=== PATIENT | male | born 1990 | race African-American/Black ===

== ENCOUNTER 2017-01-22 11:07 | Inpatient (IN) | payer OTHER ==
[~2017-01-22] VITALS: Ht 188 cm; Wt 116.1 kg
[2017-01-22] VITALS (7 sets, daily range): BP systolic 134–188; BP diastolic 78–96; PULSE 72–95; RESP 18–20; TEMP 98.5–99.3; O2SAT 97–99
[~2017-01-22 11:07] MED LIST: Z.0.NO CURRENT MEDS
[2017-01-22] MEDS ORDERED: SODIUM CHLOR 0.9% 1000 ML INJ 1,000 ML IV SCH (11:16)
[2017-01-22] MEDS ORDERED: ONDANSETRON HCL 4 MG/2 ML VIAL IVP ONE (11:30)
[2017-01-22] MEDS ORDERED: FAMOTIDINE 20 MG/2 ML VIAL IV PUSH ONE (11:30)
[2017-01-22] MEDS ORDERED: PANTOPRAZOLE SODIUM 40 MG VIAL IVP ONE (11:30)
--- NOTE | 2017-01-22 11:39 | PD ---
HPI Chief Complaint: GI Complaint Time Seen by Provider: 11:35 Travel History International Travel<30 days: No Contact w/Intl Traveler<30days: No Traveled to known affect area: No History of Present Illness HPI 26-year-old male that presents to the ED for evaluation of ingestion of drugs yesterday. Per patient he ingested a couple of small bags of cocaine that he stopped in a bigger bag secondary to police involvement. Per patient he was doing this to prevent going to [facility] and not to kill himself. He denies any suicidal or homicidal ideation. Per patient she's been doing okay except that today his been taking some laxatives to get rid of the back and his been throwing up some blood as well as having diarrhea. Per patient he comes here by ambulance for evaluation of this. He denies ever drinking like this before. No chest pain or shortness of breath. No allergies to medication. No fevers chills or sweats. He also complains of some right wrist pain. Patient denies doing drugs himself. He states that this happened yesterday night. Pain per patient is 6 out of 10. [facility] Social History Alcohol Use: No Tobacco Use: No Substance Use: No Allergies-Medications (Allergen,Severity, Reaction): Coded Allergies: No Known Allergies (Verified Allergy, Mild, 01/19/07) Reported Meds & Prescriptions Reported Meds & Active Scripts Active Reported No Current Meds (Miscellaneous Medication) [facility] Review of Systems Except as stated in HPI: all other systems reviewed are Neg Physical Exam Narrative GENERAL: SKIN: Warm and dry. HEAD: Atraumatic. Normocephalic. EYES: Pupils equal and round. No scleral icterus. No injection or drainage. ENT: No nasal bleeding or discharge. Mucous membranes pink and moist. Tongue is midline. No uvula deviation. NECK: Trachea midline. No JVD. CARDIOVASCULAR: Regular rate and rhythm. No murmurs, S3, S4. RESPIRATORY: No accessory muscle use. Clear to auscultation. Breath sounds equal bilaterally. GASTROINTESTINAL: Abdomen soft, non-tender, nondistended. Hepatic and splenic margins not palpable. MUSCULOSKELETAL: Extremities without clubbing, cyanosis, or edema. No obvious deformities. Full range of motion of the upper and lower extremities bilaterally. 2+ pulses bilaterally. NEUROLOGICAL: Awake and alert. No obvious cranial nerve deficits. Motor grossly within normal limits. Five out of 5 muscle strength in the arms and legs. Normal speech. PSYCHIATRIC: Appropriate mood and affect; insight and judgment normal. Data Data Last Documented VS Vital Signs Date Time Temp Pulse Resp B/P (MAP) Pulse Ox O2 Delivery O2 Flow Rate FiO2 01/22/17 14:52 72 18 178/92 (120) 98 Room Air 01/22/17 13:08 98.5 Orders Orders Electrocardiogram (01/22/17 11:12) Complete Blood Count With Diff (01/22/17 11:12) Comprehensive Metabolic Panel (01/22/17 11:12) Urinalysis - C+S If Indicated (01/22/17 11:12) Magnesium (Mg) (01/22/17 11:12) Chest, Single Ap (01/22/17 11:12) Iv Access Insert/Monitor (01/22/17 11:12) Ecg Monitoring (01/22/17 11:12) Oximetry (01/22/17 11:12) Drug Screen, Random Urine (01/22/17 11:12) Alcohol (Ethanol) (01/22/17 11:12) Salicylates (Aspirin) (01/22/17 11:12) Tylenol (Acetaminophen) (01/22/17 11:12) Abdomen, Flat & Upright (01/22/17 ) Ondansetron Inj (Zofran Inj) (01/22/17 11:30) Pantoprazole Inj (Protonix Inj) (01/22/17 11:30) Sodium Chlor 0.9% 1000 Ml Inj (Ns 1000 M (01/22/17 11:16) Famotidine Inj (Pepcid Inj) (01/22/17 11:30) Ct Abd/Pel W/O Iv Contrast (01/22/17 ) Wrist, Limited (Ap&Lat) (01/22/17 ) Type And Screen (01/22/17 11:38) Peg (High)/E-Lyte Liq (Colyte Liq) (01/22/17 12:00) Call Poison Control (01/22/17 12:56) Elbow, Complete (4 Vws) (01/22/17 ) Splint Or Brace Apply/Monitor (01/22/17 13:51) Fiberglass Splint Forearm Adul (01/22/17 ) Sling And Swathe (01/22/17 ) Admit Order (Ed Use Only) (01/22/17 15:31) Labs Laboratory Tests Test 01/22/17 12:09 01/22/17 12:41 White Blood Count 12.0 TH/MM3 Red Blood Count 4.53 MIL/MM3 Hemoglobin 14.2 GM/DL Hematocrit 41.6 % Mean Corpuscular Volume 92.0 FL Mean Corpuscular Hemoglobin 31.4 PG Mean Corpuscular Hemoglobin Concent 34.2 % Red Cell Distribution Width 13.3 % Platelet Count 237 TH/MM3 Mean Platelet Volume 8.5 FL Neutrophils (%) (Auto) 81.1 % Lymphocytes (%) (Auto) 8.7 % Monocytes (%) (Auto) 9.6 % Eosinophils (%) (Auto) 0.1 % Basophils (%) (Auto) 0.5 % Neutrophils # (Auto) 9.7 TH/MM3 Lymphocytes # (Auto) 1.0 TH/MM3 Monocytes # (Auto) 1.1 TH/MM3 Eosinophils # (Auto) 0.0 TH/MM3 Basophils # (Auto) 0.1 TH/MM3 CBC Comment DIFF FINAL Differential Comment Blood Urea Nitrogen 10 MG/DL Creatinine 1.30 MG/DL Random Glucose 116 MG/DL Total Protein 7.8 GM/DL Albumin 4.3 GM/DL Calcium Level 8.9 MG/DL Magnesium Level 2.1 MG/DL Alkaline Phosphatase 77 U/L Aspartate Amino Transf (AST/SGOT) 41 U/L Alanine Aminotransferase (ALT/SGPT) 39 U/L Total Bilirubin 0.6 MG/DL Sodium Level 138 MEQ/L Potassium Level 3.5 MEQ/L Chloride Level 108 MEQ/L Carbon Dioxide Level 25.0 MEQ/L Anion Gap 5 MEQ/L Estimat Glomerular Filtration Rate 80 ML/MIN Salicylates Level 2.0 MG/DL Acetaminophen Level LESS THAN 2.0 MCG/ML Ethyl Alcohol Level LESS THAN 3 MG/DL Urine Color YELLOW Urine Turbidity CLEAR Urine pH 6.5 Urine Specific Jackson 1.025 Urine Protein TRACE mg/dL Urine Glucose (UA) NEG mg/dL Urine Ketones 10 mg/dL Urine Occult Blood NEG Urine Nitrite NEG Urine Bilirubin NEG Urine Urobilinogen LESS THAN 2.0 MG/DL Urine Leukocyte Esterase TRACE Urine RBC LESS THAN 1 /hpf Urine WBC 1 /hpf Urine Mucus FEW /lpf Microscopic Urinalysis Comment CULT NOT INDICATED Urine Opiates Screen NEG Urine Barbiturates Screen NEG Urine Amphetamines Screen NEG Urine Benzodiazepines Screen NEG Urine Cocaine Screen POS Urine Cannabinoids Screen POS MDM Medical Decision Making Medical Screen Exam Complete: Yes Emergency Medical Condition: Yes Medical Record Reviewed: Yes Interpretation(s) CBC & BMP Diagram 01/22/17 12:09 Total Protein 7.8, Albumin 4.3, Calcium Level 8.9, Magnesium Level 2.1, Alkaline Phosphatase 77, Aspartate Amino Transf (AST/SGOT) 41 H, Alanine Aminotransferase (ALT/SGPT) 39, Total Bilirubin 0.6 Last Impressions Chest X-Ray 01/22/17 1112 Signed Impressions: Service Date/Time: Sunday, January 22, 2017 11:28 - CONCLUSION: Normal examination. Geno Wade MD Wrist X-Ray 01/22/17 0000 Signed Impressions: Service Date/Time: Sunday, January 22, 2017 11:47 - CONCLUSION: Posterior avulsion fracture involving the triquetrum with moderate adjacent soft tissue edema. Geno Wade MD Abdomen X-Ray 01/22/17 0000 Signed Impressions: Service Date/Time: Sunday, January 22, 2017 11:31 - CONCLUSION: No acute disease. Geno Wade MD tox positive for cocaine and marijuana UA negative EKG shows sinus rhythm with no sign of acute ischemia or arrhythmia. Differential Diagnosis Obstruction versus ingestion versus foreign body ingestion versus substance abuse Narrative Course 26-year-old male that presents to the ED for evaluation of foreign body ingestion. Patient was properly examined and was found to have signs and symptoms consistent appears to be drug ingestion foreign body. Per patient this was not a suicidal attempt and this was merrily to avoid going to [facility]. Patient has been throwing up including blood. Labs and imaging showed positive for fracture of the proximal distal radial head as well as trapezium avulsion fracture. Imaging was unremarkable. Case discussed with poison control who recommended observation until patient's symptoms improve or he passes the backs. At this time patient has not been tachycardic any symptoms other than nausea and vomiting and some hypertension. This was discussed in my attending Dr. Mccauley were evaluated the patient herself and recommends admission for observation. She was given GoLYTELY at the recommendation of my attending as well as poison control. Patient put on splint. [facility] was paged. Dr Garner agrees to obs admission. Diagnosis Primary Impression: Purposeful non-suicidal drug ingestion Qualified Codes: T50.902A - Poisoning by unspecified drugs, medicaments and biological substances, intentional self-harm, initial encounter Additional Impressions: Foreign body ingestion Qualified Codes: T18.9XXA - Foreign body of alimentary tract, part unspecified , initial encounter Radial head fracture, closed Qualified Codes: S52.124A - Nondisplaced fracture of head of right radius, initial encounter for closed fracture Fracture of triquetrum of right wrist Qualified Codes: S62.114A - Nondisplaced fracture of triquetrum [cuneiform] bone, right wrist, initial encounter for closed fracture Admitting Information Admitting Physician Requests: Fransisco Roberts Jan 22, 2017 11:39
[2017-01-22] MEDS ORDERED: PEG (High)/E-LYTE SOLN 4000 ML BTL PO ONE (12:00)
--- NOTE | 2017-01-22 12:02 | PD ---
Physical Exam Date Seen by Provider: Jan 22, 2017 Narrative This patient presents for evaluation of cocaine ingestion. He reportedly swallowed 2 packets of cocaine last night. He does not have any signs or symptoms suggestive of cocaine toxicity. Data Data Orders Orders Electrocardiogram (01/22/17 11:12) Complete Blood Count With Diff (01/22/17 11:12) Comprehensive Metabolic Panel (01/22/17 11:12) Urinalysis - C+S If Indicated (01/22/17 11:12) Magnesium (Mg) (01/22/17 11:12) Chest, Single Ap (01/22/17 11:12) Iv Access Insert/Monitor (01/22/17 11:12) Ecg Monitoring (01/22/17 11:12) Oximetry (01/22/17 11:12) Drug Screen, Random Urine (01/22/17 11:12) Alcohol (Ethanol) (01/22/17 11:12) Salicylates (Aspirin) (01/22/17 11:12) Tylenol (Acetaminophen) (01/22/17 11:12) Abdomen, Flat & Upright (01/22/17 ) Ondansetron Inj (Zofran Inj) (01/22/17 11:30) Pantoprazole Inj (Protonix Inj) (01/22/17 11:30) Sodium Chlor 0.9% 1000 Ml Inj (Ns 1000 M (01/22/17 11:16) Famotidine Inj (Pepcid Inj) (01/22/17 11:30) Ct Abd/Pel W/O Iv Contrast (01/22/17 ) Wrist, Limited (Ap&Lat) (01/22/17 ) Type And Screen (01/22/17 11:38) Peg (High)/E-Lyte Liq (Colyte Liq) (01/22/17 12:00) MDM Supervised Visit with DALIA: Yes Narrative Course I, Dr. Mccauley, have reviewed the advance practice practitioner's documentation and am in agreement, met with the patient face to face, made the diagnosis, and the medical decision making was done by me. *My assessment and Findings: CT is pending to evaluate for retained cocaine packets. The patient will be given GoLYTELY. Brenda Mccauley MD Jan 22, 2017 12:01
--- NOTE | 2017-01-22 12:09 | RADRPT ---
EXAM DATE/TIME: 01/22/2017 11:28 [facility] COMPARISON: No previous studies available for comparison. INDICATIONS : Shortness of breath, cough, and vomiting. MEDICAL HISTORY : None. SURGICAL HISTORY : None. ENCOUNTER: Initial ACUITY: 1 day PAIN SCORE: 0/10 LOCATION: Bilateral chest FINDINGS: A single view of the chest demonstrates the lungs to be symmetrically aerated without evidence of mas s, infiltrate or effusion. The cardiomediastinal contours are unremarkable. Osseous structures are intact. CONCLUSION: Normal examination. Geno Wade MD on January 22, 2017 at 12:07 Board Certified Radiologist. This report was verified electronically.
--- NOTE | 2017-01-22 12:10 | RADRPT ---
EXAM DATE/TIME: 01/22/2017 11:31 [facility] COMPARISON: No previous studies available for comparison. INDICATIONS : Vomiting from swallowing small bags of drugs. MEDICAL HISTORY : None. SURGICAL HISTORY : None. ENCOUNTER: Initial ACUITY: 1 day PAIN SCORE: 5/10 LOCATION: Bilateral abdomen. FINDINGS: Supine and upright views of the abdomen were performed. The abdominal bowel gas pattern is normal. No air fluid levels are seen. No abnormal masses, calcifications, or organomegaly is seen. The visu alized lower lungs are clear. No evidence of free intraperitoneal gas. The osseous structures are u nremarkable. CONCLUSION: No acute disease. Geno Wade MD on January 22, 2017 at 12:08 Board Certified Radiologist. This report was verified electronically.
--- NOTE | 2017-01-22 12:11 | RADRPT ---
EXAM DATE/TIME: 01/22/2017 11:47 [facility] COMPARISON: No previous studies available for comparison. INDICATIONS : Pain from fall. MEDICAL HISTORY : None. SURGICAL HISTORY : None. ENCOUNTER: Initial ACUITY: 1 day PAIN SCORE: 5/10 LOCATION: Right wrist. FINDINGS: 2 views of the right wrist demonstrate an avulsion fracture along the dorsal aspect of the carpus wit h moderate adjacent soft tissue edema consistent with an avulsion of the triquetrum. The remainder th e osseous structures are intact with normal alignment and mineralization. CONCLUSION: Posterior avulsion fracture involving the triquetrum with moderate adjacent soft tissue edema. Geno Wade MD on January 22, 2017 at 12:09 Board Certified Radiologist. This report was verified electronically.
--- NOTE | 2017-01-22 12:24 | RADRPT ---
EXAM DATE/TIME: 01/22/2017 11:32 [facility] COMPARISON: No previous studies available for comparison. INDICATIONS : Nausea and vomiting after ingesting plastic bag containing drugs. ORAL CONTRAST: No oral contrast ingested. RADIATION DOSE: 10.09 CTDIvol (mGy) MEDICAL HISTORY : None SURGICAL HISTORY : None. ENCOUNTER: Initial ACUITY: 1 day PAIN SCALE: 0/10 LOCATION: Bilateral abdomen TECHNIQUE: Volumetric scanning of the abdomen and pelvis was performed. Using automated exposure control and adjustment of the mA and/or kV according to patient size, radiation dose was kept as low as reasonably achievable to obtain optimal diagnostic quality images. DICOM format image data is av ailable electronically for review and comparison. FINDINGS: LOWER LUNGS: The visualized lower lungs are clear. LIVER: Homogeneous density without lesion. There is no dilation of the biliary tree. No calcifi ed gallstones. SPLEEN: Normal size without lesion. PANCREAS: Within normal limits. KIDNEYS: Normal in size and shape. There is no mass, stone, or hydronephrosis. ADRENAL GLANDS: Within normal limits. VASCULAR: There is no aortic aneurysm. BOWEL/MESENTERY: The stomach, small bowel, and colon demonstrate no acute abnormality. Fluid-fill ed but not distended jejunal loops. Appendix is visualized and unremarkable. There is no free intrape ritoneal air or fluid. ABDOMINAL WALL: Within normal limits. RETROPERITONEUM: There is no lymphadenopathy. BLADDER: No wall thickening or mass. REPRODUCTIVE: Within normal limits. INGUINAL: There is no lymphadenopathy or hernia. MUSCULOSKELETAL: Within normal limits for patient age. CONCLUSION: 1. Unremarkable CT examination without evidence for acute abnormality. Specifically, no evidence for bowel obstruction. Lang Fernandez MD on January 22, 2017 at 12:19 Board Certified Radiologist. This report was verified electronically.
[2017-01-22 12:40] LABS: AUTOMATED NEUTROPHIL # 9.7 TH/MM3 (1.8-7.7); BASOPHIL # 0.1 TH/MM3 (0-0.2); BASOPHIL % 0.5 % (0.0-2.0); EOSINOPHIL % 0.1 % (0.0-4.0); HEMATOCRIT 41.6 % (39.0-51.0); HEMO FLAGS DIFF FINAL; LYMPH % 8.7 % (9.0-44.0); MEAN CORPUSCULAR HEMOGLOBIN 31.4 PG (27.0-34.0); MEAN CORPUSCULAR HGB CONC 34.2 % (32.0-36.0); MONO % 9.6 % (0.0-8.0); NEUT % 81.1 % (16.0-70.0); PLATELET COUNT 237 TH/MM3 (150-450); RED BLOOD COUNT 4.53 MIL/MM3 (4.50-5.90); RED CELL DISTRIBUTION WIDTH 13.3 % (11.6-17.2)
[2017-01-22 12:55] LABS: ALT (GPT) 39 U/L (12-78); ANION GAP 5 MEQ/L (5-15); AST (GOT) 41 U/L (15-37); BLOOD UREA NITROGEN 10 MG/DL (7-18); CHLORIDE 108 MEQ/L (98-107); GLOMERULAR FILTRATION RATE 80 ML/MIN (>89); MAGNESIUM 2.1 MG/DL (1.5-2.5); POTASSIUM 3.5 MEQ/L (3.5-5.1); SODIUM (NA) 138 MEQ/L (136-145)
[2017-01-22 12:57] LABS: BLOOD, URINE NEG (NEG); COMMENT (UR) CULT NOT INDICATED; CULTURE IF INDICATED CULT NOT INDICATED; GLUCOSE,URINE NEG (NEG); KETONE, URINE 10 mg/dL (NEG); MUCUS URINE FEW /lpf (OCC); NITRITE,URINE NEG (NEG); PH, URINE 6.5 (5.0-8.5); URINE COLOR YELLOW (YELLW/STRAW)
[2017-01-22 12:57] LABS: ALKALINE PHOSPHATASE 77 U/L (45-117); TOTAL BILIRUBIN ADULT 0.6 MG/DL (0.2-1.0)
[2017-01-22 13:01] LABS: ACETAMINOPHEN LESS THAN 2.0 MCG/ML (10.0-30.0); ALCOHOL LESS THAN 3 MG/DL (0-5)
--- NOTE | 2017-01-22 13:33 | RADRPT ---
EXAM DATE/TIME: 01/22/2017 13:25 [facility] COMPARISON: No previous studies available for comparison. INDICATIONS : Pain from fall. MEDICAL HISTORY : None. SURGICAL HISTORY : None. ENCOUNTER: Initial ACUITY: 1 day PAIN SCORE: 3/10 LOCATION: Right elbow. FINDINGS: Multiple views of the right elbow demonstrate a compression fracture involving the distal aspect of t he radial head without evidence of articular step-off. There is a small joint effusion present. The r emainder the osseous structures are intact with normal alignment and mineralization. CONCLUSION: Nondisplaced radial head fracture. Geno Wade MD on January 22, 2017 at 13:31 Board Certified Radiologist. This report was verified electronically.
--- NOTE | 2017-01-22 16:00 | HHI.HP ---
[facility] No Primary Care Physician Admission Diagnosis ingestion of drug stuffers with cocaine, wrist and elbow fx Diagnoses: Chief Complaint: ingested cocaine Travel History International Travel<30 Days: No Contact w/Intl Traveler <30 Da: No Traveled to Known Affected Are: No History of Present Illness Written by Dianna Orozco, acting as scribe for Dr. Dhillon on 01/22/17 at 16: 05. 26-year-old male with no significant past medical history presents after ingesting baggies of crack cocaine. The patient reports last night he was around a bunch of police and he was worried him and his friend were going to get arrested, therefore he decided to ingest 4 individually wrapped baggies of crack cocaine that were also placed inside another plastic sandwich bag. The patient ran from the scene, fell on an outstretched hand, and was taken to [facility] for resisting arrest. He spent the night in [facility], released this morning, then presented to the ER today with right wrist pain and vomiting. The patient reports he has been vomiting multiple times today, with a few episodes of streaks of bright red blood in the emesis. He has also been taking laxatives to assist with passing the baggies. He denies any abdominal pain, chest pain, palpitations, or shortness of breath. He denies using drugs himself, only admits to marijuana use. The patient has no other medical complaints at this time. Review of Systems Except as stated in HPI: all other systems reviewed are Neg Past Family Social History Past Medical History Denies any medical problems Past Surgical History Denies any prior surgeries Reported Medications Denies taking any medications on a regular basis Allergies: Coded Allergies: No Known Allergies (Verified , 01/19/07) Active Ordered Medications Current Medications Medications (Trade) Dose Ordered Sig/Can Route Start Time Stop Time Status Last Admin Sodium Chloride 1,000 ml @ 75 mls/hr [id number] IV 01/22/17 16:14 01/22/17 16:28 (NS Flush) 2 ml UNSCH PRN IV FLUSH 01/22/17 16:15 (NS Flush) 2 ml BID IV FLUSH 01/22/17 21:00 (Tylenol) 650 mg Q4H PRN PO 01/22/17 16:15 (Zofran Inj) 4 mg Q6H PRN IVP 01/22/17 16:15 (Narcan Inj) 0.4 mg UNSCH PRN IV PUSH 01/22/17 16:15 (Anay-Colace) 1 tab BID PO 01/22/17 21:00 (Milk Of Magnesia Liq) 30 ml Q12H PRN PO 01/22/17 16:15 (Senokot) 17.2 mg Q12H PRN PO 01/22/17 16:15 (Dulcolax Supp) 10 mg DAILY PRN RECTAL 01/22/17 16:15 (Lactulose Liq) 30 ml DAILY PRN PO 01/22/17 16:15 Family History Mother with hypertension Social History Drinks alcohol every other day, mostly white vodka Denies tobacco use Smokes marijuana regularly Denies any other illicit drug use Has 3 children Not Physical Exam Vital Signs Vital Signs Date Time Temp Pulse Resp B/P (MAP) Pulse Ox O2 Delivery O2 Flow Rate FiO2 01/22/17 14:52 72 18 178/92 (120) 98 Room Air 01/22/17 13:08 98.5 93 18 134/78 (96) 99 Room Air 01/22/17 11:30 99 Room Air 01/22/17 11:30 18 Physical Exam GENERAL: Well-nourished, well-developed young AA male patient in [facility]. SKIN: Warm and dry. No rash. HEAD: Normocephalic. Atraumatic. EYES: Pupils equal and round. No scleral icterus. No injection or drainage. ENT: No nasal bleeding or discharge. Mucous membranes pink and moist. NECK: Supple. Trachea midline. CARDIOVASCULAR: Regular rate and rhythm. S1, S2 noted. No murmur appreciated. RESPIRATORY: No accessory muscle use. Clear to auscultation. Breath sounds equal bilaterally. GASTROINTESTINAL: Abdomen soft, non-tender, nondistended. Normoactive bowel sounds x4. MUSCULOSKELETAL: No obvious deformities. Extremities without clubbing, cyanosis , or edema. NEUROLOGICAL: Awake and alert. No obvious cranial nerve deficits. Motor grossly within normal limits. Normal speech. PSYCHIATRIC: Appropriate mood and affect; insight and judgment normal. Laboratory Laboratory Tests Test 01/22/17 12:09 01/22/17 12:41 White Blood Count 12.0 Red Blood Count 4.53 Hemoglobin 14.2 Hematocrit 41.6 Mean Corpuscular Volume 92.0 Mean Corpuscular Hemoglobin 31.4 Mean Corpuscular Hemoglobin Concent 34.2 Red Cell Distribution Width 13.3 Platelet Count 237 Mean Platelet Volume 8.5 Neutrophils (%) (Auto) 81.1 Lymphocytes (%) (Auto) 8.7 Monocytes (%) (Auto) 9.6 Eosinophils (%) (Auto) 0.1 Basophils (%) (Auto) 0.5 Neutrophils # (Auto) 9.7 Lymphocytes # (Auto) 1.0 Monocytes # (Auto) 1.1 Eosinophils # (Auto) 0.0 Basophils # (Auto) 0.1 CBC Comment DIFF FINAL Differential Comment Blood Urea Nitrogen 10 Creatinine 1.30 Random Glucose 116 Total Protein 7.8 Albumin 4.3 Calcium Level 8.9 Magnesium Level 2.1 Alkaline Phosphatase 77 Aspartate Amino Transf (AST/SGOT) 41 Alanine Aminotransferase (ALT/SGPT) 39 Total Bilirubin 0.6 Sodium Level 138 Potassium Level 3.5 Chloride Level 108 Carbon Dioxide Level 25.0 Anion Gap 5 Estimat Glomerular Filtration Rate 80 Salicylates Level 2.0 Acetaminophen Level LESS THAN 2.0 Ethyl Alcohol Level LESS THAN 3 Urine Color YELLOW Urine Turbidity CLEAR Urine pH 6.5 Urine Specific Lyons 1.025 Urine Protein TRACE Urine Glucose (UA) NEG Urine Ketones 10 Urine Occult Blood NEG Urine Nitrite NEG Urine Bilirubin NEG Urine Urobilinogen LESS THAN 2.0 Urine Leukocyte Esterase TRACE Urine RBC LESS THAN 1 Urine WBC 1 Urine Mucus FEW Microscopic Urinalysis Comment CULT NOT INDICATED Urine Opiates Screen NEG Urine Barbiturates Screen NEG Urine Amphetamines Screen NEG Urine Benzodiazepines Screen NEG Urine Cocaine Screen POS Urine Cannabinoids Screen POS Result Diagram: 01/22/17 1209 01/22/17 1209 Imaging Last Impressions Chest X-Ray 01/22/17 1112 Signed Impressions: Service Date/Time: Sunday, January 22, 2017 11:28 - CONCLUSION: Normal examination. Geno Wade MD Wrist X-Ray 01/22/17 0000 Signed Impressions: Service Date/Time: Sunday, January 22, 2017 11:47 - CONCLUSION: Posterior avulsion fracture involving the triquetrum with moderate adjacent soft tissue edema. Geno Wade MD Abdomen X-Ray 01/22/17 0000 Signed Impressions: Service Date/Time: Sunday, January 22, 2017 11:31 - CONCLUSION: No acute disease. MD Rigoberto Moore VTE Risk Assessment Rigoberto VTE Risk Assessment: No/Low Risk (score <= 1) Caprini Risk Assessment Model Point Value = 1 Point Value = 2 Point Value = 3 Point Value = 5 Age 41-60 Minor surgery BMI > 25 kg/m2 Swollen legs Varicose veins or History of unexplained or recurrent spontaneous Oral contraceptives or hormone replacement Sepsis (< 1 month) Serious lung disease, including pneumonia (< 1 month) Abnormal pulmonary function Acute myocardial infarction Congestive heart failure (< 1 month) History of inflammatory bowel disease Medical patient at bed rest Age 61-74 Arthroscopic surgery Major open surgery (> 45 min) Laparoscopic surgery (> 45 min) Malignancy Confined to bed (> 72 hours) Immobilizing plaster cast Central venous access Age >= 75 History of VTE Family history of VTE Factor V Leiden Prothrombin [id number] Lupus anticoagulant Anticardiolipin antibodies Elevated serum homocysteine Heparin-induced thrombocytopenia Other congenital or acquired thrombophilia Stroke (< 1 month) Elective arthroplasty Hip, pelvis, or leg fracture Acute spinal cord injury (< 1 month) Prophylaxis Regimen Total Risk Factor Score Risk Level Prophylaxis Regimen 0-1 Low Early ambulation 2 Moderate Order ONE of the following: *Sequential Compression Device (SCD) *Heparin 5000 units SQ BID 3-4 Higher Order ONE of the following medications: *Heparin 5000 units SQ TID *Enoxaparin/Lovenox 40 mg SQ daily (WT < 150 kg, CrCl > 30 mL/min) *Enoxaparin/Lovenox 30 mg SQ daily (WT < 150 kg, CrCl > 10-29 mL/min) *Enoxaparin/Lovenox 30 mg SQ BID (WT < 150 kg, CrCl > 30 mL/min) AND/OR *Sequential Compression Device (SCD) 5 or more Highest Order ONE of the following medications: *Heparin 5000 units SQ TID (Preferred with Epidurals) *Enoxaparin/Lovenox 40 mg SQ daily (WT < 150 kg, CrCl > 30 mL/min) *Enoxaparin/Lovenox 30 mg SQ daily (WT < 150 kg, CrCl > 10-29 mL/min) *Enoxaparin/Lovenox 30 mg SQ BID (WT < 150 kg, CrCl > 30 mL/min) AND *Sequential Compression Device (SCD) Assessment and Plan Problem List: (1) Purposeful non-suicidal drug ingestion ICD Code: T50.902A - Poisoning by unspecified drugs, medicaments and biological substances, intentional self-harm, initialencounter Status: Acute (2) Foreign body ingestion ICD Code: T18.9XXA - Foreign body of alimentary tract, part unspecified, initial encounter Status: Acute (3) Radial head fracture, closed ICD Code: S52.123A - Displaced fracture of head of unspecified radius, initial encounter for closed fracture Status: Acute Assessment and Plan 26-year-old male with no significant past medical history presents after ingesting baggies of crack cocaine. Cocaine Ingestion: intentional ingestion in an attempt to escape police arrest. Last night 01/21 patient swallowed 4 individually wrapped baggies of crack cocaine rocks/crystals, placed inside another plastic sandwich bag. Poison control contacted from the ED. Patient is at EXTREMELY HIGH RISK FOR CARDIAC ARRHYTHMIA, SUDDEN CARDIAC ARREST, AND . UDS positive for cocaine and cannabinoids. -CT abdomen images reviewed, no acute findings. -ER already started patient on Golytely bowel prep to hopefully expel the contents. -Examine all stools -Monitor on telemetry -Supportive treatment with IVF, antiemetics prn -Clear liquid diet -Monitor patient closely for any signs of intoxication/overdose Right Wrist Fracture: Wrist xray images reviewed, shows posterior avulsion fracture involing the triquetrum with moderate adjacent soft tissue edema. Nonsurgical. -Splint placed in the ER. -Recommend outpatient follow up with orthopedics after discharge. -Avoid any narcotics with ingestion as above. Hypertension: BP elevated at 178/92, no history of hypertension. Likely elevated secondary to vomiting/stress. -Clonidine prn DVT Prophylaxis: teds/SCDs This note was transcribed by sofi Orozco I, Dr. Thomas Veliz personally performed the history, physical exam, and medical decision making; and confirmed the accuracy of the information in the transcribed note. Authenticated by Dr. Thomas Veliz on 01/22/17 at 16:20. Code Status Full Code Discussed Condition With Patient, Patient's friend at bedside, ER PA Problem Qualifiers (1) Purposeful non-suicidal drug ingestion: Qualified Codes: T50.902A - Poisoning by unspecified drugs, medicaments and biological substances, intentional self-harm, initial encounter (2) Foreign body ingestion: Qualified Codes: T18.9XXA - Foreign body of alimentary tract, part unspecified , initial encounter (3) Radial head fracture, closed: Qualified Codes: S52.124A - Nondisplaced fracture of head of right radius, initial encounter for closed fracture Dianna Orozco PA-C Jan 22, 2017 16:00 Thomas Horn MD Jan 22, 2017 16:05
[2017-01-22] MEDS ORDERED: SENNOSIDES 8.6 MG TAB PO PRN (16:15)
[2017-01-22] MEDS ORDERED: MAGNESIUM HYDROXIDE SUSP 30 ML CUP PO PRN (16:15)
[2017-01-22] MEDS ORDERED: NALOXONE HCL 0.4 MG/ML AMP IV PUSH PRN (16:15)
[2017-01-22] MEDS ORDERED: BISACODYL 10 MG SUPP RECTAL PRN (16:15)
[2017-01-22] MEDS ORDERED: ACETAMINOPHEN 325 MG TAB PO PRN (16:15)
[2017-01-22] MEDS ORDERED: SODIUM CHLORIDE 0.9% FLUSH 10 ML FLUSH IV FLUSH PRN (16:15)
[2017-01-22] MEDS ORDERED: ONDANSETRON HCL 4 MG/2 ML VIAL IVP PRN (16:15)
[2017-01-22] MEDS ORDERED: LACTULOSE SYRUP 20 GM/30 ML CUP PO PRN (16:15)
[2017-01-22] MEDS: SODIUM CHLOR 0.45% 1000 ML INJ 1,000 ML IV SCH (16:28)
[2017-01-22] MEDS: DOCUSATE SODIUM 50 MG/SENNA 8.6 MG TAB PO SCH (21:00)
[2017-01-22] MEDS: SODIUM CHLORIDE 0.9% FLUSH 10 ML FLUSH IV FLUSH SCH (21:00)
[2017-01-23] VITALS (7 sets, daily range): BP systolic 116–189; BP diastolic 70–95; PULSE 68–79; RESP 18–20; TEMP 97.7–99; O2SAT 96–100
--- NOTE | 2017-01-23 01:23 | EKG ---
Date Performed: 01/22/2017 Time Performed: 13:53:13 PTAGE: 26 years EKG: Sinus rhythm NORMAL ECG NO PREVIOUS TRACING DOCTOR: Ramos Bearden Interpretating Date/Time 01/23/2017 01:23:12
[2017-01-23] MEDS: SODIUM CHLOR 0.45% 1000 ML INJ 1,000 ML IV SCH ×2 (04:36→17:42)
[2017-01-23 08:39] LABS: AUTOMATED NEUTROPHIL # 5.3 TH/MM3 (1.8-7.7); BASOPHIL % 0.6 % (0.0-2.0); EOSINOPHIL % 0.6 % (0.0-4.0); HEMATOCRIT 44.2 % (39.0-51.0); HEMO FLAGS DIFF FINAL; LYMPH % 19.8 % (9.0-44.0); LYMPHOCYTE # 1.6 TH/MM3 (1.0-4.8); MEAN CELL VOLUME 94.1 FL (80.0-100.0); MEAN CORPUSCULAR HEMOGLOBIN 31.8 PG (27.0-34.0); MEAN CORPUSCULAR HGB CONC 33.8 % (32.0-36.0); MONO % 11.9 % (0.0-8.0); NEUT % 67.1 % (16.0-70.0); PLATELET COUNT 236 TH/MM3 (150-450); RED CELL DISTRIBUTION WIDTH 13.8 % (11.6-17.2); WHITE BLOOD COUNT 7.9 TH/MM3 (4.0-11.0)
[2017-01-23 08:58] LABS: ALT (GPT) 38 U/L (12-78); ANION GAP 10 MEQ/L (5-15); AST (GOT) 53 U/L (15-37); BICARBONATE 24.3 MEQ/L (21.0-32.0); BLOOD UREA NITROGEN 8 MG/DL (7-18); CHLORIDE 106 MEQ/L (98-107); GLOMERULAR FILTRATION RATE 80 ML/MIN (>89); POTASSIUM 3.3 MEQ/L (3.5-5.1); SODIUM (NA) 140 MEQ/L (136-145)
[2017-01-23 09:00] LABS: ALKALINE PHOSPHATASE 80 U/L (45-117); TOTAL BILIRUBIN ADULT 0.9 MG/DL (0.2-1.0)
[2017-01-23] MEDS: DOCUSATE SODIUM 50 MG/SENNA 8.6 MG TAB PO SCH ×2 (09:22→19:34)
[2017-01-23] MEDS: SODIUM CHLORIDE 0.9% FLUSH 10 ML FLUSH IV FLUSH SCH ×2 (09:24→19:34)
[2017-01-23] MEDS ORDERED: POTASSIUM CHLORIDE 20 MEQ CONTROLLED RELEASE TAB PO ONE (12:30)
[2017-01-23] MEDS ORDERED: MORPHINE SULFATE 4 MG/ML INJ IV PUSH ONE (12:30)
--- NOTE | 2017-01-23 18:05 | HHI.PR ---
Subjective Remarks Patient complain of chest pain and right arm pain which subsided with IV morphine. The patient denies chest pain, shortness of breath. The patient denies headache, dizziness, nausea or vomiting. Patient complains of some right upper quadrant abdominal pain. Blood pressure elevated earlier, however now better controlled. Objective Vitals Vital Signs Date Time Temp Pulse Resp B/P (MAP) Pulse Ox O2 Delivery O2 Flow Rate FiO2 01/23/17 16:00 98.7 77 18 116/71 (86) 96 01/23/17 12:00 99.0 76 18 170/94 (119) 97 01/23/17 08:00 97.7 77 18 117/95 (102) 98 01/23/17 04:00 98.1 79 20 172/94 (120) 97 01/23/17 00:00 99.0 74 18 160/70 (100) 100 01/22/17 21:00 76 01/22/17 21:00 172/86 (114) 01/22/17 20:00 99.3 80 18 188/86 (120) 97 I/O 01/22/17 01/22/17 01/22/17 01/23/17 01/23/17 01/23/17 07:00 15:00 23:00 07:00 15:00 23:00 Intake Total 360 ml 480 ml 480 ml Balance 360 ml 480 ml 480 ml Intake Oral 360 ml 480 ml 480 ml # Voids 1 3 # Bowel Movements 3 1 5 Result Diagram: 01/23/17 0740 01/23/17 0740 Imaging Last Impressions Chest X-Ray 01/22/17 1112 Signed Impressions: Service Date/Time: Sunday, January 22, 2017 11:28 - CONCLUSION: Normal examination. Geno Wade MD Wrist X-Ray 01/22/17 0000 Signed Impressions: Service Date/Time: Sunday, January 22, 2017 11:47 - CONCLUSION: Posterior avulsion fracture involving the triquetrum with moderate adjacent soft tissue edema. Geno Wade MD Elbow X-Ray 01/22/17 0000 Signed Impressions: Service Date/Time: Sunday, January 22, 2017 13:25 - CONCLUSION: Nondisplaced radial head fracture. Geno Wade MD Abdomen/Pelvis CT 01/22/17 0000 Signed Impressions: Service Date/Time: Sunday, January 22, 2017 11:32 - CONCLUSION: 1. Unremarkable CT examination without evidence for acute abnormality. Specifically, no evidence for bowel obstruction. Lang Fernandez MD Abdomen X-Ray 01/22/17 0000 Signed Impressions: Service Date/Time: Sunday, January 22, 2017 11:31 - CONCLUSION: No acute disease. Geno Wade MD Objective Remarks GENERAL: Well-nourished, well-developed young AA male patient in [facility]. SKIN: Warm and dry. No rash. HEAD: Normocephalic. Atraumatic. EYES: Pupils equal and round. No scleral icterus. No injection or drainage. ENT: No nasal bleeding or discharge. Mucous membranes pink and moist. NECK: Supple. Trachea midline. CARDIOVASCULAR: Regular rate and rhythm. S1, S2 noted. No murmur appreciated. RESPIRATORY: No accessory muscle use. Clear to auscultation. Breath sounds equal bilaterally. GASTROINTESTINAL: Abdomen soft, non-tender, nondistended. Normoactive bowel sounds x4. MUSCULOSKELETAL: No obvious deformities. Extremities without clubbing, cyanosis , or edema. NEUROLOGICAL: Awake and alert. No obvious cranial nerve deficits. Motor grossly within normal limits. Normal speech. PSYCHIATRIC: Appropriate mood and affect; insight and judgment normal. Medications and IVs Current Medications Medications (Trade) Dose Ordered Sig/Can Route Start Time Stop Time Status Last Admin Sodium Chloride 1,000 ml @ 75 mls/hr [id number] IV 01/22/17 16:14 01/22/17 16:28 (NS Flush) 2 ml UNSCH PRN IV FLUSH 01/22/17 16:15 (NS Flush) 2 ml BID IV FLUSH 01/22/17 21:00 01/23/17 09:24 (Tylenol) 650 mg Q4H PRN PO 01/22/17 16:15 (Zofran Inj) 4 mg Q6H PRN IVP 01/22/17 16:15 01/22/17 17:37 (Narcan Inj) 0.4 mg UNSCH PRN IV PUSH 01/22/17 16:15 (Anay-Colace) 1 tab BID PO 01/22/17 21:00 01/23/17 09:22 (Milk Of Magnesia Liq) 30 ml Q12H PRN PO 01/22/17 16:15 (Senokot) 17.2 mg Q12H PRN PO 01/22/17 16:15 (Dulcolax Supp) 10 mg DAILY PRN RECTAL 01/22/17 16:15 (Lactulose Liq) 30 ml DAILY PRN PO 01/22/17 16:15 A/P Problem List: (1) Purposeful non-suicidal drug ingestion ICD Code: T50.902A - Poisoning by unspecified drugs, medicaments and biological substances, intentional self-harm, initialencounter Status: Acute (2) Foreign body ingestion ICD Code: T18.9XXA - Foreign body of alimentary tract, part unspecified, initial encounter Status: Acute (3) Radial head fracture, closed ICD Code: S52.123A - Displaced fracture of head of unspecified radius, initial encounter for closed fracture Status: Acute Assessment and Plan 26-year-old male with no significant past medical history presents after ingesting baggies of crack cocaine. Cocaine Ingestion: intentional ingestion in an attempt to escape police arrest. Last night 01/21 patient swallowed 4 individually wrapped baggies of crack cocaine rocks/crystals, placed inside another plastic sandwich bag. Poison control contacted from the ED. Patient is at EXTREMELY HIGH RISK FOR CARDIAC ARRHYTHMIA, SUDDEN CARDIAC ARREST, AND . UDS positive for cocaine and cannabinoids. -CT abdomen images reviewed, no acute findings. -ER already started patient on Golytely bowel prep to hopefully expel the contents. -Examine all stools -Monitor on telemetry -Supportive treatment with IVF, antiemetics prn -Clear liquid diet -Monitor patient closely for any signs of intoxication/overdose 01/23 discussed the case with radiology. I will order a noncontrast CT of the abdomen with oral contrast given that the initially obtained CT of the abdomen and pelvis does not show any artificial object. Right Wrist Fracture: Wrist xray images reviewed, shows posterior avulsion fracture involing the triquetrum with moderate adjacent soft tissue edema. Nonsurgical. -Splint placed in the ER. -Recommend outpatient follow up with orthopedics after discharge. -Avoid any narcotics with ingestion as above. 01/23 Patient c/o pain in wrist. 4 mg of IV morphine were given earlier. I will place the patient on Toradol. Hypertension: BP elevated at 178/92, no history of hypertension. Likely elevated secondary to pain. -Clonidine prn DVT Prophylaxis: teds/SCDs Problem Qualifiers (1) Purposeful non-suicidal drug ingestion: Qualified Codes: T50.902A - Poisoning by unspecified drugs, medicaments and biological substances, intentional self-harm, initial encounter (2) Foreign body ingestion: Qualified Codes: T18.9XXA - Foreign body of alimentary tract, part unspecified , initial encounter (3) Radial head fracture, closed: Qualified Codes: S52.124A - Nondisplaced fracture of head of right radius, initial encounter for closed fracture Thomas Horn MD Jan 23, 2017 18:05
[2017-01-23 18:09] LABS: CREATINE KINASE 2382 U/L (39-308)
[2017-01-23 18:22] LABS: CKMB 2.7 NG/ML (0.5-3.6)
[2017-01-23] MEDS ORDERED: DIATRIZOATE MEGLUM/DIATRIZOATE SOD 9 ML CUP PO ONE (18:24)
[2017-01-23] MEDS: KETOROLAC TROMETHAMINE 30 MG/ML (IVP) VIAL IV PUSH PRN (19:34)
[2017-01-23] MEDS: cloNIDine HCL 0.1 MG TAB PO PRN (19:34)
--- NOTE | 2017-01-23 22:55 | RADRPT ---
EXAM DATE/TIME: 01/23/2017 22:08 [place] COMPARISON: CT ABDOMEN & PELVIS W/O CONTRAST, January 22, 2017, 11:32. INDICATIONS : Upper abdominal pain. ORAL CONTRAST: Prescribed oral contrast ingested. RADIATION DOSE: 11.95 CTDIvol (mGy) MEDICAL HISTORY : Hypertension. SURGICAL HISTORY : None. ENCOUNTER: Initial ACUITY: 1 day PAIN SCALE: 4/10 LOCATION: Bilateral upper quadrant TECHNIQUE: Volumetric scanning of the abdomen and pelvis was performed. Using automated exposure control and ad justment of the mA and/or kV according to patient size, radiation dose was kept as low as reasonably achievable to obtain optimal diagnostic quality images. DICOM format image data is available electro nically for review and comparison. FINDINGS: Examination performed of the patient's right hand over the mid abdomen LOWER LUNGS: The visualized lower lungs are clear. LIVER: Homogeneous density without lesion noncontrast technique. There is no dilation of the biliary tree. No calcified gallstones. SPLEEN: Normal size without lesion. PANCREAS: Within normal limits. KIDNEYS: Normal in size and shape. There is no mass, stone, or hydronephrosis. ADRENAL GLANDS: Within normal limits. VASCULAR: There is no aortic aneurysm. BOWEL/MESENTERY: No dilated loops of small or large bowel. Oral contrast passes through to the rectum. ABDOMINAL WALL: Within normal limits. RETROPERITONEUM: There is no lymphadenopathy. BLADDER: No wall thickening or mass. REPRODUCTIVE: Within normal limits. INGUINAL: There is no lymphadenopathy or hernia. MUSCULOSKELETAL: Within normal limits for patient age. CONCLUSION: Negative CT abdomen/pelvis without contrast. Abbe Rick MD on January 23, 2017 at 22:51 Board Certified Radiologist. This report was verified electronically.
[2017-01-24] VITALS (7 sets, daily range): BP systolic 157–173; BP diastolic 87–97; PULSE 66–75; RESP 16–20; TEMP 98.4–99.2; O2SAT 97–99
[2017-01-24 00:10] LABS: CKMB 2.1 NG/ML (0.5-3.6)
[2017-01-24] MEDS: cloNIDine HCL 0.1 MG TAB PO PRN (04:46)
[2017-01-24 07:07] LABS: CREATINE KINASE 1514 U/L (39-308)
[2017-01-24 07:19] LABS: CKMB 1.9 NG/ML (0.5-3.6)
[2017-01-24] MEDS: DOCUSATE SODIUM 50 MG/SENNA 8.6 MG TAB PO SCH ×2 (09:00→21:00)
[2017-01-24] MEDS: SODIUM CHLORIDE 0.9% FLUSH 10 ML FLUSH IV FLUSH SCH ×2 (09:08→21:00)
--- NOTE | 2017-01-24 13:25 | HHI.PR ---
Subjective Remarks complain of epigastric sharp pain denies cp/sob bp still very elevated Objective Vitals Vital Signs Date Time Temp Pulse Resp B/P (MAP) Pulse Ox O2 Delivery O2 Flow Rate FiO2 01/24/17 12:05 99.0 72 20 169/90 (116) 99 01/24/17 08:32 98.4 69 20 170/97 (121) 98 01/24/17 04:51 98.8 66 16 173/97 (122) 98 01/24/17 00:16 99.2 67 16 158/93 (114) 98 01/23/17 20:00 68 01/23/17 19:55 99.0 71 18 189/90 (123) 98 01/23/17 16:00 98.7 77 18 116/71 (86) 96 I/O 01/23/17 01/23/17 01/23/17 01/24/17 01/24/17 01/24/17 07:00 15:00 23:00 07:00 15:00 23:00 Intake Total 480 ml 480 ml Balance 480 ml 480 ml Intake Oral 480 ml 480 ml # Voids 3 3 # Bowel Movements 1 5 Result Diagram: 01/23/17 0740 01/23/17 0740 Imaging Last Impressions Abdomen/Pelvis CT 01/23/17 0000 Signed Impressions: Service Date/Time: Monday, January 23, 2017 22:08 - CONCLUSION: Negative CT abdomen/pelvis without contrast. Abbe Rick MD Chest X-Ray 01/22/17 1112 Signed Impressions: Service Date/Time: Sunday, January 22, 2017 11:28 - CONCLUSION: Normal examination. Geno Wade MD Wrist X-Ray 01/22/17 0000 Signed Impressions: Service Date/Time: Sunday, January 22, 2017 11:47 - CONCLUSION: Posterior avulsion fracture involving the triquetrum with moderate adjacent soft tissue edema. Geno Wade MD Elbow X-Ray 01/22/17 0000 Signed Impressions: Service Date/Time: Sunday, January 22, 2017 13:25 - CONCLUSION: Nondisplaced radial head fracture. Geno Wade MD Abdomen X-Ray 01/22/17 0000 Signed Impressions: Service Date/Time: Sunday, January 22, 2017 11:31 - CONCLUSION: No acute disease. Geno Wade MD Objective Remarks GENERAL: Well-nourished, well-developed young AA male patient in NAD. SKIN: Warm and dry. No rash. HEAD: Normocephalic. Atraumatic. EYES: Pupils equal and round. No scleral icterus. No injection or drainage. ENT: No nasal bleeding or discharge. Mucous membranes pink and moist. NECK: Supple. Trachea midline. CARDIOVASCULAR: Regular rate and rhythm. S1, S2 noted. No murmur appreciated. RESPIRATORY: No accessory muscle use. Clear to auscultation. Breath sounds equal bilaterally. GASTROINTESTINAL: Abdomen soft, non-tender, nondistended. Normoactive bowel sounds x4. MUSCULOSKELETAL: No obvious deformities. Extremities without clubbing, cyanosis , or edema. NEUROLOGICAL: Awake and alert. No obvious cranial nerve deficits. Motor grossly within normal limits. Normal speech. PSYCHIATRIC: Appropriate mood and affect; insight and judgment normal. Procedures none Medications and IVs Current Medications Medications (Trade) Dose Ordered Sig/Can Route Start Time Stop Time Status Last Admin Sodium Chloride 1,000 ml @ 125 mls/hr Q8H IV 01/22/17 16:14 01/22/17 16:28 (NS Flush) 2 ml UNSCH PRN IV FLUSH 01/22/17 16:15 (NS Flush) 2 ml BID IV FLUSH 01/22/17 21:00 01/24/17 09:08 (Tylenol) 650 mg Q4H PRN PO 01/22/17 16:15 (Zofran Inj) 4 mg Q6H PRN IVP 01/22/17 16:15 01/22/17 17:37 (Narcan Inj) 0.4 mg UNSCH PRN IV PUSH 01/22/17 16:15 (Anay-Colace) 1 tab BID PO 01/22/17 21:00 01/23/17 19:34 (Milk Of Magnesia Liq) 30 ml Q12H PRN PO 01/22/17 16:15 (Senokot) 17.2 mg Q12H PRN PO 01/22/17 16:15 (Dulcolax Supp) 10 mg DAILY PRN RECTAL 01/22/17 16:15 (Lactulose Liq) 30 ml DAILY PRN PO 01/22/17 16:15 (Toradol Inj) 15 mg Q6H PRN IV PUSH 01/23/17 18:30 01/28/17 18:29 01/23/17 19:34 (Catapres) 0.1 mg Q6H PRN PO 01/23/17 18:30 01/24/17 04:46 (Norvasc) 10 mg DAILY PO 01/24/17 09:00 01/24/17 09:08 A/P Problem List: (1) Purposeful non-suicidal drug ingestion ICD Code: T50.902A - Poisoning by unspecified drugs, medicaments and biological substances, intentional self-harm, initialencounter Status: Acute (2) Foreign body ingestion ICD Code: T18.9XXA - Foreign body of alimentary tract, part unspecified, initial encounter Status: Acute (3) Radial head fracture, closed ICD Code: S52.123A - Displaced fracture of head of unspecified radius, initial encounter for closed fracture Status: Acute Assessment and Plan 26-year-old male with no significant past medical history presents after ingesting baggies of crack cocaine. Cocaine Ingestion: intentional ingestion in an attempt to escape police arrest. Last night 01/21 patient swallowed 4 individually wrapped baggies of crack cocaine rocks/crystals, placed inside another plastic sandwich bag. Poison control contacted from the ED. Patient is at EXTREMELY HIGH RISK FOR CARDIAC ARRHYTHMIA, SUDDEN CARDIAC ARREST, AND . UDS positive for cocaine and cannabinoids. -CT abdomen images reviewed, no acute findings. -ER already started patient on Golytely bowel prep to hopefully expel the contents. -Examine all stools -Monitor on telemetry -Supportive treatment with IVF, antiemetics prn -Clear liquid diet -Monitor patient closely for any signs of intoxication/overdose 01/23 discussed the case with radiology and radiologist mainframe applications developer cannot see any foreign object on initial CT scan, he recommended a noncontrast CT abdomen with oral contrast. I will order a noncontrast CT of the abdomen with oral contrast given that the initially obtained CT of the abdomen and pelvis does not show any artificial object. 01/[address] negative. Will consult GI for possible EGD/ colonoscopy. Right Wrist Fracture: Wrist xray images reviewed, shows posterior avulsion fracture involing the triquetrum with moderate adjacent soft tissue edema. Nonsurgical. -Splint placed in the ER. -Recommend outpatient follow up with orthopedics after discharge. -Avoid any narcotics with ingestion as above. 01/23 Patient c/o pain in wrist. 4 mg of IV morphine were given earlier. I will place the patient on Toradol. Hypertension: BP elevated at 178/92, no history of hypertension. Likely elevated secondary to pain. 102 BP still very elevated. Amlodipine ordered this am without significant improvement. will start on Clonidine 01 mg po Q 8 hrs. Avoid Beta blockers. Epigastric pain Will order mylanta and PPI. DVT Prophylaxis: teds/SCDs Discharge Planning GI consult pending. Patient has not passed cocaine bags. Problem Qualifiers (1) Purposeful non-suicidal drug ingestion: Qualified Codes: T50.902A - Poisoning by unspecified drugs, medicaments and biological substances, intentional self-harm, initial encounter (2) Foreign body ingestion: Qualified Codes: T18.9XXA - Foreign body of alimentary tract, part unspecified , initial encounter (3) Radial head fracture, closed: Qualified Codes: S52.124A - Nondisplaced fracture of head of right radius, initial encounter for closed fracture Thomas Horn MD Jan 24, 2017 13:25
[2017-01-24] MEDS ORDERED: ALUMINUM/MAGNESIUM/SIMETH 30 ML CUP PO PRN (13:30)
[2017-01-24] MEDS ORDERED: ALUMINUM/MAGNESIUM/SIMETH 30 ML CUP PO ONE (13:30)
[2017-01-24] MEDS: PANTOPRAZOLE SOD 40 MG DELAYED RELEASE TAB PO SCH (13:45)
[2017-01-24] MEDS: cloNIDine HCL 0.1 MG TAB PO SCH ×2 (13:45→21:19)
--- NOTE | 2017-01-24 16:36 | PD.CONS ---
HPI History of Present Illness This is a 26 year old male who presented to the ER for evaluation after ingesting 4 bags of crack cocaine early Tuesday morning and for right wrist pain. He reports that he was surrounded by a bunch of police and was afraid he was going to get arrested and therefore swallowed 4 bags of crack cocaine- each about 0.5 to 0.7 grams. He states the bags were double wrapped in a sandwich bag and he twisted this up and swallowed it whole without any difficulty. He then ran from the scene and fell on an outstretched hand and was taken to senior care for resisting arrest. He was released the next morning and presented to the ER for evaluation of right wrist pain and for swallowing the crack. He reports that he forced himself to vomit and took a laxative to pass the baggies, but did not have any success. He was found to have a radial head fracture and was splinted and instructed to follow up with orthopaedics after discharge. CT Scan abdomen without contrast was unremarkable. He was given a gallon of golytely, but has only passed liquid stool, not the baggies. He is not having any nausea/vomiting, abdominal pain, or GI bleeding at this time. GI has been consulted for further evaluation and treatment. GS has also been consulted. (Pauly Don) [facility] Past Medical History Denies Past Surgical History Denies (Pauly Don) Coded Allergies: No Known Allergies (Verified , 01/19/07) Medications Allergies Coded Allergies Type Severity Reaction Last Updated Verified No Known Allergies 01/19/07 Yes Active Scripts Medications Dose Route/Sig Max Daily Dose Days Date Category No Active Prescriptions or Reported Medications Rx Family History Mother with hypertension Social History Drinks alcohol every other day, mostly white vodka Denies tobacco use Smokes marijuana regularly Denies any other illicit drug use. He was positive for cocaine, but states he deals with crack cocaine on a daily basis, but does not actually use it himself (Pauly Don) Review of Systems Constitutional: DENIES: Fatigue, Weight loss Respiratory: DENIES: Cough Cardiovascular: DENIES: Chest pain Gastrointestinal: DENIES: Abdominal pain Musculoskeletal: COMPLAINS OF: Joint pain, Muscle aches, Joint Swelling Integumentary: DENIES: Abnormal pigmentation Hematologic/lymphatic: DENIES: Bruising Neurologic: DENIES: Headache Psychiatric: DENIES: Confusion (Pauly Don) GI Exam Vitals I&O Vital Signs Date Time Temp Pulse Resp B/P (MAP) Pulse Ox O2 Delivery O2 Flow Rate FiO2 01/24/17 15:37 98.6 75 20 166/87 (113) 99 01/24/17 12:05 99.0 72 20 169/90 (116) 99 01/24/17 08:32 98.4 69 20 170/97 (121) 98 01/24/17 04:51 98.8 66 16 173/97 (122) 98 01/24/17 00:16 99.2 67 16 158/93 (114) 98 01/23/17 20:00 68 01/23/17 19:55 99.0 71 18 189/90 (123) 98 I/O 01/23/17 01/23/17 01/23/17 01/24/17 01/24/17 01/24/17 07:00 15:00 23:00 07:00 15:00 23:00 Intake Total 480 ml 480 ml 480 ml Balance 480 ml 480 ml 480 ml Intake Oral 480 ml 480 ml 480 ml # Voids 3 3 # Bowel Movements 1 5 Imaging Last Impressions Abdomen/Pelvis CT 01/23/17 0000 Signed Impressions: Service Date/Time: Monday, January 23, 2017 22:08 - CONCLUSION: Negative CT abdomen/pelvis without contrast. Abbe Rick MD Chest X-Ray 01/22/17 1112 Signed Impressions: Service Date/Time: Sunday, January 22, 2017 11:28 - CONCLUSION: Normal examination. Geno Wade MD Wrist X-Ray 01/22/17 0000 Signed Impressions: Service Date/Time: Sunday, January 22, 2017 11:47 - CONCLUSION: Posterior avulsion fracture involving the triquetrum with moderate adjacent soft tissue edema. Geno Wade MD Elbow X-Ray 01/22/17 0000 Signed Impressions: Service Date/Time: Sunday, January 22, 2017 13:25 - CONCLUSION: Nondisplaced radial head fracture. Geno Wade MD Abdomen X-Ray 01/22/17 0000 Signed Impressions: Service Date/Time: Sunday, January 22, 2017 11:31 - CONCLUSION: No acute disease. Geno Wade MD Laboratory Test 01/23/17 17:25 01/23/17 22:56 01/24/17 05:55 Total Creatine Kinase 2382 U/L 1919 U/L 1514 U/L Creatine Kinase MB 2.7 NG/ML 2.1 NG/ML 1.9 NG/ML Creatine Kinase MB % 0.1 % 0.1 % 0.1 % Troponin I LESS THAN 0.02 NG/ML 0.03 NG/ML LESS THAN 0.02 NG/ML Physical Examination HEENT: Normocephalic; atraumatic; no jaundice. CHEST: CTA CARDIAC: RRR ABDOMEN: Soft, nondistended, nontender; no hepatosplenomegaly; bowel sounds are present in all four quadrants. EXTREMITIES: No clubbing, cyanosis, or edema. SKIN: Normal; no rash; no jaundice. CLOTH FOLDER HAND: No focal deficits; alert and oriented times three. (Pauly Don) Assessment and Plan Plan ASSESSMENT: - Intentional ingestion of crack cocaine. CT Scan abdomen and pelvis without IV contrast (01/23/17)---> negative CT abdomen and pelvis. Pt swallowed 4 bags of crack cocaine (each 0.5 to 0.7 grams), double wrapped in a sandwich bag to avoid arrest early Tuesday am. He tried to induce vomiting and took laxatives to try to pass the baggies, but has not been successful. He had Golytely 1 gallon on 01/21, liquid stool, but did not pass the baggies. GI consulted for possible egd/colonoscopy. GS also consulted. Clinically, he is stable without any signs of bag rupture at this time. He does not appear obstructed on exam. He is not having any n/v, abdominal pain. Will give another Golytely and will try to contact GS. - Right radial head fx. S/P Splint. PLAN: - Clear liquids - Golytely - GS consulted - Notify physician of any changes in condition - Further recommendations after above - Pt seen and examined by Dr. Garcia and myself and this note is written on her behalf (Pauly Don) Physician Comments seen, examined agree with above states he placed the carry bag in another plastic bag, he wrapped it and swallowed it as per him it was approximately 3 gm he had a bowel movement after he was admitted, water like-did not check that one states the bowel movement appeared 1-2 hours after he ingested the bag we will give him additional prep await surgical consult endoscopic evacuation is usually not favored because of its potential hazard of rupture of the packets and deterioration of patient condition due to exposure to large amount of drug. this was discussed with patient in detail we will reevaluate in am and decide about egd/colon if no passing occurs overnight after additional bowel prep (Malathi Garcia MD) Pauly Don [facility] Jan 24, 2017 16:36 Malathi Garcia MD Jan 24, 2017 17:59
[2017-01-24 16:57] LABS: BASOPHIL # 0.1 TH/MM3 (0-0.2); BASOPHIL % 0.8 % (0.0-2.0); EOSINOPHIL # 0.1 TH/MM3 (0-0.4); EOSINOPHIL % 0.8 % (0.0-4.0); HEMATOCRIT 42.7 % (39.0-51.0); HEMO FLAGS DIFF FINAL; LYMPH % 20.5 % (9.0-44.0); LYMPHOCYTE # 1.5 TH/MM3 (1.0-4.8); MEAN CELL VOLUME 92.5 FL (80.0-100.0); MEAN CORPUSCULAR HEMOGLOBIN 31.9 PG (27.0-34.0); MEAN CORPUSCULAR HGB CONC 34.4 % (32.0-36.0); MONO % 10.8 % (0.0-8.0); NEUT % 67.1 % (16.0-70.0); PLATELET COUNT 249 TH/MM3 (150-450); RED BLOOD COUNT 4.62 MIL/MM3 (4.50-5.90); WHITE BLOOD COUNT 7.5 TH/MM3 (4.0-11.0)
[2017-01-24] MEDS ORDERED: PEG (High)/E-LYTE SOLN 4000 ML BTL PO ONE (17:00)
[2017-01-24 17:19] LABS: ANION GAP 8 MEQ/L (5-15); AST (GOT) 40 U/L (15-37); BICARBONATE 26.9 MEQ/L (21.0-32.0); BLOOD UREA NITROGEN 6 MG/DL (7-18); CHLORIDE 104 MEQ/L (98-107); GLOMERULAR FILTRATION RATE 85 ML/MIN (>89); POTASSIUM 3.3 MEQ/L (3.5-5.1); SODIUM (NA) 139 MEQ/L (136-145)
[2017-01-24 17:21] LABS: ALT (GPT) 36 U/L (12-78)
[2017-01-24 17:23] LABS: ALKALINE PHOSPHATASE 73 U/L (45-117); TOTAL BILIRUBIN ADULT 0.7 MG/DL (0.2-1.0)
[2017-01-24] MEDS: SODIUM CHLOR 0.45% 1000 ML INJ 1,000 ML IV SCH (18:05)
--- NOTE | 2017-01-24 19:41 | EKG ---
Date Performed: 01/23/2017 Time Performed: 13:12:15 PTAGE: 26 years EKG: Sinus rhythm ST ELEVATION, PROBABLY EARLY REPOLARIZATION BORDERLINE ECG PREVIOUS TRACING : 01/22/2017 13.53 Compared to prior tracing no significant change DOCTOR: Vladislav Louise Interpretating Date/Time 01/24/2017 19:36:13
[2017-01-24] MEDS: KETOROLAC TROMETHAMINE 30 MG/ML (IVP) VIAL IV PUSH PRN (21:21)
[2017-01-25] VITALS (7 sets, daily range): BP systolic 133–175; BP diastolic 60–97; PULSE 81–99; RESP 16–18; TEMP 98–98.5; O2SAT 93–100
[2017-01-25] MEDS: SODIUM CHLOR 0.45% 1000 ML INJ 1,000 ML IV SCH ×3 (00:18→16:18)
[2017-01-25] MEDS: cloNIDine HCL 0.1 MG TAB PO SCH ×3 (05:30→21:13)
[2017-01-25] MEDS: KETOROLAC TROMETHAMINE 30 MG/ML (IVP) VIAL IV PUSH PRN ×3 (05:30→21:14)
--- NOTE | 2017-01-25 07:31 | MB ---
cc: JAY MCCLAIN DATE OF CONSULTATION 01/24/2017 REASON FOR CONSULTATION Ingestion of crack cocaine wrapped in baggies. HISTORY This is a pleasant 26-year-old -[place] gentleman who was afraid of the police and he had apparently 4 packets of crack cocaine that he had wrapped in a sandwich bag tied off tightly when he just swallowed the substance. He did this on Tuesday of last week. He went home and tried to vomit. His girlfriend tried to help him by sticking her finger down his throat, might have scratched his throat. Then he took some laxatives and then came to the hospital when he began getting nervous about it. He was admitted to the hospital. CT scan of his abdomen was done. They did not see anything, any masses or any density. GI was consulted because he vomited some and then had some blood streaking; he thinks it might be from the scratch in his throat; it is unclear. He then subsequently had a repeat CT scan with contrast looking for any packets but prior to that he has had numerous bowel movements from this laxatives and the GoLYTELY that he has ingested. There is contrast all the way to the rectum; they do not see any abnormality. Surgery was consulted because of the contraindications to try to retrieve this by endoscopic means per report. PAST MEDICAL HISTORY Significant for hypertension that is untreated. There is a family history for that as well. PAST SURGICAL HISTORY Never had any surgery. During all this commotion about these crack cocaine bags, he fell and he broke his wrist. He is in a cast on his upper extremity on the right side. PHYSICAL EXAMINATION GENERAL: On physical exam he is a pleasant gentleman who is very pleasant and somewhat remorseful about his events. NECK: Supple. CHEST: Clear. HEART: Regular rate. He is not tachycardiac. ABDOMEN: His abdomen is thin, soft and without rebound or guarding. NEUROLOGIC: He is alert, oriented without focal deficits. He does not appear to be in any distress. He has had half a bottle of GoLYTELY, has already drank a whole jug of it. He is drinking a second jug. He is having profuse, watery diarrhea because of all the laxatives he took and a big jug of GoLYTELY and he is working on the second one. CT images x2 reviewed. Plain film reviewed. LABORATORY DATA He had a white count of 12, H&H 14 and 42. His chemistries are all essentially normal. Liver enzymes are a little bit elevated, AST is 40, is down from 53. His creatinine is improved from 1.3 to 1.2. His troponin was a little elevated but it is coming down. Toxicology report shows some cocaine and cannabis. ASSESSMENT 1. A 26-year-old pleasant gentleman who broke his wrist and he is being treated 2. He has hypertension; he needs treatment for that. 3. He swallowed some crack cocaine the way he describes it sealed in a plastic wrapper of some type. He put this in a baggie, then tied it off and he swallowed it. I think with amount of laxatives he has had and the fact that it has been since last week Tuesday, 4 or 5 days ago. I think more than likely he passed this. He was not checking his stool initially. And now he is having watery diarrhea 4. As for his upper GI bleed, I suspect that he is correct; he probably scratched his throat when he was trying to vomit. GI is evaluating him, considering an EGD. RECOMMENDATIONS At this time I see no indications for any surgical intervention. I do not see anything on the x-rays and the amount of GI washout that he has had, I think he has flushed this packet. Jay Mcclain MD JDB/SSB /9:34 PM /7:17 AM [facility] CENTERMaral
[2017-01-25 07:54] LABS: AUTOMATED NEUTROPHIL # 4.4 TH/MM3 (1.8-7.7); BASOPHIL # 0.1 TH/MM3 (0-0.2); BASOPHIL % 0.8 % (0.0-2.0); EOSINOPHIL # 0.1 TH/MM3 (0-0.4); EOSINOPHIL % 1.8 % (0.0-4.0); HEMATOCRIT 41.5 % (39.0-51.0); HEMO FLAGS DIFF FINAL; LYMPH % 19.5 % (9.0-44.0); LYMPHOCYTE # 1.3 TH/MM3 (1.0-4.8); MEAN CELL VOLUME 92.3 FL (80.0-100.0); MEAN CORPUSCULAR HEMOGLOBIN 32.1 PG (27.0-34.0); MEAN CORPUSCULAR HGB CONC 34.8 % (32.0-36.0); MONO % 11.6 % (0.0-8.0); NEUT % 66.3 % (16.0-70.0); PLATELET COUNT 241 TH/MM3 (150-450); WHITE BLOOD COUNT 6.6 TH/MM3 (4.0-11.0)
[2017-01-25 08:19] LABS: ANION GAP 9 MEQ/L (5-15); AST (GOT) 29 U/L (15-37); BICARBONATE 26.4 MEQ/L (21.0-32.0); BLOOD UREA NITROGEN 7 MG/DL (7-18); CHLORIDE 102 MEQ/L (98-107); GLOMERULAR FILTRATION RATE 84 ML/MIN (>89); POTASSIUM 3.4 MEQ/L (3.5-5.1); SODIUM (NA) 137 MEQ/L (136-145)
[2017-01-25 08:20] LABS: ALT (GPT) 34 U/L (12-78)
[2017-01-25 08:22] LABS: ALKALINE PHOSPHATASE 75 U/L (45-117); CREATINE KINASE 742 U/L (39-308); TOTAL BILIRUBIN ADULT 0.8 MG/DL (0.2-1.0)
[2017-01-25 08:43] LABS: CKMB 1.4 NG/ML (0.5-3.6)
[2017-01-25] MEDS: PANTOPRAZOLE SOD 40 MG DELAYED RELEASE TAB PO SCH (08:49)
[2017-01-25] MEDS: DOCUSATE SODIUM 50 MG/SENNA 8.6 MG TAB PO SCH ×2 (08:50→21:00)
[2017-01-25] MEDS: SODIUM CHLORIDE 0.9% FLUSH 10 ML FLUSH IV FLUSH SCH ×2 (09:00→21:00)
--- NOTE | 2017-01-25 09:50 | HHI.GIFU ---
Subjective Remarks Resting in bed without distress. Drank 2/3 of Golytely last night, multiple bowel movements, but states that he did not pass the baggies overnight. States that he did have a bowel movement on admission and did not look at it, states it is possible that he passed it at that time. (Pauly Don) Objective Vitals I&O Vital Signs Date Time Temp Pulse Resp B/P (MAP) Pulse Ox O2 Delivery O2 Flow Rate FiO2 01/25/17 07:53 98.3 87 17 140/84 (102) 100 01/25/17 04:00 98.3 83 18 157/94 (115) 98 01/25/17 00:00 98.0 99 18 133/60 (84) 93 01/24/17 20:00 98.4 70 20 157/94 (115) 97 01/24/17 15:37 98.6 75 20 166/87 (113) 99 01/24/17 12:05 99.0 72 20 169/90 (116) 99 01/24/17 09:40 74 I/O 01/24/17 01/24/17 01/24/17 01/25/17 01/25/17 01/25/17 06:59 14:59 22:59 06:59 14:59 22:59 Intake Total 480 ml 2186 ml Balance 480 ml 2186 ml Intake Oral 480 ml 720 ml IV Total 1466 ml # Voids 3 1 1 # Bowel Movements 0 0 Laboratory Laboratory Tests Test 01/24/17 15:56 01/25/17 07:31 White Blood Count 7.5 6.6 Red Blood Count 4.62 4.50 Hemoglobin 14.7 14.4 Hematocrit 42.7 41.5 Mean Corpuscular Volume 92.5 92.3 Mean Corpuscular Hemoglobin 31.9 32.1 Mean Corpuscular Hemoglobin Concent 34.4 34.8 Red Cell Distribution Width 13.0 13.0 Platelet Count 249 241 Mean Platelet Volume 9.0 8.4 Neutrophils (%) (Auto) 67.1 66.3 Lymphocytes (%) (Auto) 20.5 19.5 Monocytes (%) (Auto) 10.8 11.6 Eosinophils (%) (Auto) 0.8 1.8 Basophils (%) (Auto) 0.8 0.8 Neutrophils # (Auto) 5.0 4.4 Lymphocytes # (Auto) 1.5 1.3 Monocytes # (Auto) 0.8 0.8 Eosinophils # (Auto) 0.1 0.1 Basophils # (Auto) 0.1 0.1 CBC Comment DIFF FINAL DIFF FINAL Differential Comment Blood Urea Nitrogen 6 7 Creatinine 1.24 1.25 Random Glucose 92 92 Total Protein 7.4 7.1 Albumin 3.8 3.6 Calcium Level 8.8 8.9 Phosphorus Level 2.8 2.1 Magnesium Level 2.0 2.0 Alkaline Phosphatase 73 75 Aspartate Amino Transf (AST/SGOT) 40 29 Alanine Aminotransferase (ALT/SGPT) 36 34 Total Bilirubin 0.7 0.8 Sodium Level 139 137 Potassium Level 3.3 3.4 Chloride Level 104 102 Carbon Dioxide Level 26.9 26.4 Anion Gap 8 9 Estimat Glomerular Filtration Rate 85 84 Total Creatine Kinase 742 Creatine Kinase MB 1.4 Creatine Kinase MB % 0.2 Imaging Last Impressions Abdomen/Pelvis CT 01/23/17 0000 Signed Impressions: Service Date/Time: Monday, January 23, 2017 22:08 - CONCLUSION: Negative CT abdomen/pelvis without contrast. Abbe Rick MD Chest X-Ray 01/22/17 1112 Signed Impressions: Service Date/Time: Sunday, January 22, 2017 11:28 - CONCLUSION: Normal examination. Geno Wade MD Wrist X-Ray 01/22/17 0000 Signed Impressions: Service Date/Time: Sunday, January 22, 2017 11:47 - CONCLUSION: Posterior avulsion fracture involving the triquetrum with moderate adjacent soft tissue edema. Geno Wade MD Elbow X-Ray 01/22/17 0000 Signed Impressions: Service Date/Time: Sunday, January 22, 2017 13:25 - CONCLUSION: Nondisplaced radial head fracture. Geno Wade MD Abdomen X-Ray 01/22/17 0000 Signed Impressions: Service Date/Time: Sunday, January 22, 2017 11:31 - CONCLUSION: No acute disease. Geno Wade MD Physical Exam HEENT: Normocephalic; atraumatic; no jaundice. Throat is clear. NECK: Neck is supple, no JVD, no lymphadenopathy. CHEST: Chest is clear to auscultation and percussion. CARDIAC: Regular rate and rhythm with no murmur gallop or rubs. ABDOMEN: Soft, nondistended, nontender; no hepatosplenomegaly; bowel sounds are present in all four quadrants. EXTREMITIES: No clubbing, cyanosis, or edema. SKIN: Normal; no rash; no jaundice. DEBIT AGENT: No focal deficits; alert and oriented times three. (Pauly Don) Assessment and Plan Plan ASSESSMENT: - Intentional ingestion of crack cocaine. CT Scan abdomen and pelvis without IV contrast (01/23/17)---> negative CT abdomen and pelvis. Pt swallowed 4 bags of crack cocaine (each 0.5 to 0.7 grams), double wrapped in a sandwich bag to avoid arrest early Tuesday am. He tried to induce vomiting and took laxatives to try to pass the baggies, but has not been successful. He had Golytely 1 gallon on 01/21, liquid stool, now saying that he did not look at his stool and he possibly passed it at that time and flushed it. He has had 2 CT scans, the last was with po contrast, but was unremarkable. GI consulted for possible egd/colonoscopy. Endoscopic evacuation is usually not favored because of its potential hazard of rupture of the packets and deterioration of patient condition due to exposure to large amount of drug.GS also consulted. Clinically, he is stable without any signs of bag rupture at this time. His abdominal exam is benign. He took another 2/3 Golytely (01/24) and had multiple bowel movements , but did not pass any bags. He is not having any active bleeding. S/P GS evaluation, feels that he likely already passed. Will get CT scan abdomen and pelvis without po/iv contrast. - Right radial head fx. S/P Splint. PLAN: - Clear liquids - CT scan abdomen and pelvis without po/iv contrast - GS following - Supportive care - Notify physician of any changes in condition - Further recommendations after above - Pt seen and examined by Dr. Garcia and myself and this note is written on her behalf (Pauly Don) Physician Comments seen, examined agree with above wants to eat regular food we will schedule egd in am , possible surgery stand by in case bag seen risk , benefits discussed in detail , would like to try food first and see if will wok having loose stools (Malathi Garcia MD) DonPauly epstein FER Jan 25, 2017 09:50 Malathi Garcia MD Jan 25, 2017 17:30
--- NOTE | 2017-01-25 10:53 | RADRPT ---
EXAM DATE/TIME: 01/25/2017 10:24 [place] COMPARISON: CT ABDOMEN & PELVIS W/O CONTRAST, January 23, 2017, 22:08. INDICATIONS : Left upper quadrant pain. Ingested 4 bags crack cocaine in one sandwich bag. Evaluate to see if pass ed. ORAL CONTRAST: No oral contrast ingested. RADIATION DOSE: 9.96 CTDIvol (mGy) MEDICAL HISTORY : Hypertension. SURGICAL HISTORY : None. ENCOUNTER: Subsequent ACUITY: 3 days PAIN SCALE: 2/10 LOCATION: Abdomen. TECHNIQUE: Volumetric scanning of the abdomen and pelvis was performed. Using automated exposure control and ad justment of the mA and/or kV according to patient size, radiation dose was kept as low as reasonably achievable to obtain optimal diagnostic quality images. DICOM format image data is available electro nically for review and comparison. FINDINGS: LOWER LUNGS: The visualized lower lungs are clear. LIVER: Homogeneous density without lesion. There is no dilation of the biliary tree. No calcified gallston es. SPLEEN: Normal size without lesion. PANCREAS: Within normal limits. KIDNEYS: Normal in size and shape. There is no mass, stone, or hydronephrosis. ADRENAL GLANDS: Within normal limits. VASCULAR: There is no aortic aneurysm. BOWEL/MESENTERY: There is material noted in the distal stomach. However, the stomach is decompressed and its uncertain what the stomach contents represent. Bowel otherwise appears unremarkable. No definite prominent int raluminal material is demonstrated. No evidence for obstruction. No free air or pneumatosis. ABDOMINAL WALL: Within normal limits. RETROPERITONEUM: There is no lymphadenopathy. BLADDER: No wall thickening or mass. REPRODUCTIVE: Within normal limits. INGUINAL: There is no lymphadenopathy or hernia. MUSCULOSKELETAL: Within normal limits for patient age. CONCLUSION: 1. Small amount of distal gastric content. However, the stomach is decompressed and its uncertain wha t the stomach contents represent. 2. Otherwise, no definitive prominent intraluminal material in the bowel is demonstrated. No evidence for obstruction. Lang Fernandez MD on January 25, 2017 at 10:46 Board Certified Radiologist. This report was verified electronically.
[2017-01-25] MEDS ORDERED: POTASSIUM CHLORIDE 20 MEQ CONTROLLED RELEASE TAB PO ONE (13:30)
[2017-01-26] VITALS (7 sets, daily range): BP systolic 129–179; BP diastolic 78–133; PULSE 75–97; RESP 17–19; TEMP 97.5–98.8; O2SAT 97–99
[2017-01-26] MEDS: SODIUM CHLOR 0.45% 1000 ML INJ 1,000 ML IV SCH (00:18)
--- NOTE | 2017-01-26 00:23 | HHI.PR ---
Subjective Remarks late entry - patient seen on 01/25/17 at 4 pm Patient ambulating hallway today c/o epigastric pain but denies nauea or vomiting states he feels very hungry Objective Vitals Vital Signs Date Time Temp Pulse Resp B/P (MAP) Pulse Ox O2 Delivery O2 Flow Rate FiO2 01/25/17 20:40 98.5 86 16 175/93 (120) 96 01/25/17 19:00 88 01/25/17 15:49 98.1 81 18 161/97 (118) 100 01/25/17 13:53 19 01/25/17 12:09 98.5 81 18 163/95 (117) 100 01/25/17 07:53 98.3 87 17 140/84 (102) 100 01/25/17 04:00 98.3 83 18 157/94 (115) 98 I/O 01/25/17 01/25/17 01/25/17 01/26/17 01/26/17 01/26/17 07:00 15:00 23:00 07:00 15:00 23:00 Intake Total 1800 ml Balance 1800 ml Intake Oral 1800 ml # Voids 1 4 2 # Bowel Movements 0 3 0 Result Diagram: 01/25/1773001/25/17730 Objective Remarks GENERAL: Well-nourished, well-developed young AA male patient in [facility]. SKIN: Warm and dry. No rash. HEAD: Normocephalic. Atraumatic. EYES: Pupils equal and round. No scleral icterus. No injection or drainage. ENT: No nasal bleeding or discharge. Mucous membranes pink and moist. NECK: Supple. Trachea midline. CARDIOVASCULAR: Regular rate and rhythm. S1, S2 noted. No murmur appreciated. RESPIRATORY: No accessory muscle use. Clear to auscultation. Breath sounds equal bilaterally. GASTROINTESTINAL: Abdomen soft, non-tender, nondistended. Normoactive bowel sounds x4. MUSCULOSKELETAL: No obvious deformities. Extremities without clubbing, cyanosis , or edema. NEUROLOGICAL: Awake and alert. No obvious cranial nerve deficits. Motor grossly within normal limits. Normal speech. PSYCHIATRIC: Appropriate mood and affect; insight and judgment normal. Procedures none A/P Problem List: (1) Purposeful non-suicidal drug ingestion ICD Code: T50.902A - Poisoning by unspecified drugs, medicaments and biological substances, intentional self-harm, initialencounter Status: Acute (2) Foreign body ingestion ICD Code: T18.9XXA - Foreign body of alimentary tract, part unspecified, initial encounter Status: Acute (3) Radial head fracture, closed ICD Code: S52.123A - Displaced fracture of head of unspecified radius, initial encounter for closed fracture Status: Acute Assessment and Plan 26-year-old male with no significant past medical history presents after ingesting baggies of crack cocaine. Cocaine Ingestion: intentional ingestion in an attempt to escape police arrest. Last night 01/21 patient swallowed 4 individually wrapped baggies of crack cocaine rocks/crystals, placed inside another plastic sandwich bag. Poison control contacted from the ED. Patient is at EXTREMELY HIGH RISK FOR CARDIAC ARRHYTHMIA, SUDDEN CARDIAC ARREST, AND . UDS positive for cocaine and cannabinoids. -CT abdomen images reviewed, no acute findings. -ER already started patient on Golytely bowel prep to hopefully expel the contents. -Examine all stools -Monitor on telemetry -Supportive treatment with IVF, antiemetics prn -Clear liquid diet -Monitor patient closely for any signs of intoxication/overdose 01/23 discussed the case with radiology and radiologist religious education coordinator cannot see any foreign object on initial CT scan, he recommended a noncontrast CT abdomen with oral contrast. I will order a noncontrast CT of the abdomen with oral contrast given that the initially obtained CT of the abdomen and pelvis does not show any artificial object. 01/[address] negative. Will consult GI for possible EGD/ colonoscopy. 01/25 Surgery Consulted - no surgical intervention at this time. CT with IV contrast without oral contrast shows abnormality in stomach. Discussed case with Dr Garcia from Gi who will perform upper endoscopy in patient in am. Right Wrist Fracture: Wrist xray images reviewed, shows posterior avulsion fracture involing the triquetrum with moderate adjacent soft tissue edema. Nonsurgical. -Splint placed in the ER. -Recommend outpatient follow up with orthopedics after discharge. -Avoid any narcotics with ingestion as above. 01/23 Patient c/o pain in wrist. 4 mg of IV morphine were given earlier. I will place the patient on Toradol. Hypertension: BP elevated at 178/92, no history of hypertension. Likely elevated secondary to pain. 102 BP still very elevated. Amlodipine ordered this am without significant improvement. will start on Clonidine 01 mg po Q 8 hrs. Avoid Beta blockers. 01/25 Will continue to monitor BP under current medications if still elevated will increase Clonidine dose. Epigastric pain Continue mylanta and PPI. DVT Prophylaxis: teds/SCDs Discharge Planning For EGD in am. Problem Qualifiers (1) Purposeful non-suicidal drug ingestion: Qualified Codes: T50.902A - Poisoning by unspecified drugs, medicaments and biological substances, intentional self-harm, initial encounter (2) Foreign body ingestion: Qualified Codes: T18.9XXA - Foreign body of alimentary tract, part unspecified , initial encounter (3) Radial head fracture, closed: Qualified Codes: S52.124A - Nondisplaced fracture of head of right radius, initial encounter for closed fracture Thomas Horn MD Jan 26, 2017 00:23
[2017-01-26] MEDS: KETOROLAC TROMETHAMINE 30 MG/ML (IVP) VIAL IV PUSH PRN ×2 (04:37→17:28)
[2017-01-26] MEDS: cloNIDine HCL 0.1 MG TAB PO SCH ×3 (05:41→20:41)
[2017-01-26] MEDS: DOCUSATE SODIUM 50 MG/SENNA 8.6 MG TAB PO SCH ×2 (09:00→20:41)
[2017-01-26] MEDS: SODIUM CHLORIDE 0.9% FLUSH 10 ML FLUSH IV FLUSH SCH ×2 (09:00→20:41)
[2017-01-26] MEDS: PANTOPRAZOLE SOD 40 MG DELAYED RELEASE TAB PO SCH (09:00)
[2017-01-26] MEDS ORDERED: PROPOFOL 200 MG/20 ML AMP IV ONE (12:00)
[2017-01-26] MEDS ORDERED: ONDANSETRON HCL 4 MG/2 ML VIAL IV PUSH ONE (12:00)
[2017-01-26] MEDS ORDERED: PHENYLEPH/NS 1000 MCG/10 ML SYR IV ONE (12:00)
[2017-01-26] MEDS ORDERED: DEXAMETHASONE SOD PHOS 4 MG/ML VIAL IV ONE (12:00)
[2017-01-26] MEDS ORDERED: LIDOCAINE HCL 1% PF 5 ML AMPULE OTHER ONE (12:00)
[2017-01-26] MEDS ORDERED: MIDAZOLAM HCL 2 MG/2 ML VIAL IV ONE (12:00)
[2017-01-26] MEDS ORDERED: ePHEDrine/NS 25 MG/5 ML SYR IV ONE (12:00)
--- NOTE | 2017-01-26 13:01 | HHI.PR ---
Subjective Remarks deferred entry - saw patient at 10:50 am patient still has epigastric pain denies vomiting feels nauseous Objective Vitals Vital Signs Date Time Temp Pulse Resp B/P (MAP) Pulse Ox O2 Delivery O2 Flow Rate FiO2 01/26/17 08:03 98.1 81 19 159/87 (111) 99 01/26/17 04:10 97.8 76 18 140/87 (104) 99 01/26/17 00:15 98.1 75 17 129/95 (106) 98 01/25/17 20:40 98.5 86 16 175/93 (120) 96 01/25/17 19:00 88 01/25/17 15:49 98.1 81 18 161/97 (118) 100 01/25/17 13:53 19 I/O 01/25/17 01/25/17 01/25/17 01/26/17 01/26/17 01/26/17 07:00 15:00 23:00 07:00 15:00 23:00 Intake Total 1800 ml 450 ml Balance 1800 ml 450 ml Intake Oral 1800 ml 450 ml # Voids 1 4 2 2 # Bowel Movements 0 3 0 0 Result Diagram: 01/25/17 0731 01/25/17 0731 Imaging Last Impressions Abdomen/Pelvis CT 01/25/17 0000 Signed Impressions: Service Date/Time: Wednesday, January 25, 2017 10:24 - CONCLUSION: 1. Small amount of distal gastric content. However, the stomach is decompressed and its uncertain what the stomach contents represent. 2. Otherwise, no definitive prominent intraluminal material in the bowel is demonstrated. No evidence for obstruction. Lnag Fernandez MD Chest X-Ray 01/22/17 1112 Signed Impressions: Service Date/Time: Sunday, January 22, 2017 11:28 - CONCLUSION: Normal examination. Geno Wade MD Wrist X-Ray 01/22/17 0000 Signed Impressions: Service Date/Time: Sunday, January 22, 2017 11:47 - CONCLUSION: Posterior avulsion fracture involving the triquetrum with moderate adjacent soft tissue edema. Geno Wade MD Elbow X-Ray 01/22/17 0000 Signed Impressions: Service Date/Time: Sunday, January 22, 2017 13:25 - CONCLUSION: Nondisplaced radial head fracture. Geno Wade MD Abdomen X-Ray 01/22/17 0000 Signed Impressions: Service Date/Time: Sunday, January 22, 2017 11:31 - CONCLUSION: No acute disease. Geno Wade MD Objective Remarks GENERAL: Well-nourished, well-developed young AA male patient in [facility]. SKIN: Warm and dry. No rash. HEAD: Normocephalic. Atraumatic. EYES: Pupils equal and round. No scleral icterus. No injection or drainage. ENT: No nasal bleeding or discharge. Mucous membranes pink and moist. NECK: Supple. Trachea midline. CARDIOVASCULAR: Regular rate and rhythm. S1, S2 noted. No murmur appreciated. RESPIRATORY: No accessory muscle use. Clear to auscultation. Breath sounds equal bilaterally. GASTROINTESTINAL: Abdomen soft, non-tender, nondistended. Normoactive bowel sounds x4. MUSCULOSKELETAL: No obvious deformities. Extremities without clubbing, cyanosis , or edema. NEUROLOGICAL: Awake and alert. No obvious cranial nerve deficits. Motor grossly within normal limits. Normal speech. PSYCHIATRIC: Appropriate mood and affect; insight and judgment normal. Procedures none Medications and IVs Current Medications Medications (Trade) Dose Ordered Sig/Can Route Start Time Stop Time Status Last Admin Sodium Chloride 1,000 ml @ 125 mls/hr Q8H IV 01/22/17 16:14 01/25/17 16:18 (NS Flush) 2 ml UNSCH PRN IV FLUSH 01/22/17 16:15 (NS Flush) 2 ml BID IV FLUSH 01/22/17 21:00 01/26/17 09:00 (Tylenol) 650 mg Q4H PRN PO 01/22/17 16:15 (Zofran Inj) 4 mg Q6H PRN IVP 01/22/17 16:15 01/22/17 17:37 (Narcan Inj) 0.4 mg UNSCH PRN IV PUSH 01/22/17 16:15 (Anay-Colace) 1 tab BID PO 01/22/17 21:00 01/25/17 08:50 (Milk Of Magnesia Liq) 30 ml Q12H PRN PO 01/22/17 16:15 (Senokot) 17.2 mg Q12H PRN PO 01/22/17 16:15 (Dulcolax Supp) 10 mg DAILY PRN RECTAL 01/22/17 16:15 (Lactulose Liq) 30 ml DAILY PRN PO 01/22/17 16:15 (Toradol Inj) 15 mg Q6H PRN IV PUSH 01/23/17 18:30 01/28/17 18:29 01/26/17 04:37 (Catapres) 0.1 mg Q6H PRN PO 01/23/17 18:30 01/24/17 04:46 (Norvasc) 10 mg DAILY PO 01/24/17 09:00 01/25/17 08:50 (Mag-Al Plus Susp Liq) 30 ml Q6H PRN PO 01/24/17 13:30 (Catapres) 0.1 mg Q8HR PO 01/24/17 14:00 01/26/17 05:41 (Carafate Liq) 1 gm ACHS PO 01/26/17 17:00 (Protonix Inj) 40 mg Q12H IV PUSH 01/26/17 16:00 Miscellaneous Information ALL NURSING DEPARTME... UNSCH PRN .XX 01/26/17 13:47 01/27/17 13:46 Urinary Catheter: No Vascular Central Line Catheter: No A/P Problem List: (1) Purposeful non-suicidal drug ingestion ICD Code: T50.902A - Poisoning by unspecified drugs, medicaments and biological substances, intentional self-harm, initialencounter Status: Acute (2) Foreign body ingestion ICD Code: T18.9XXA - Foreign body of alimentary tract, part unspecified, initial encounter Status: Acute (3) Radial head fracture, closed ICD Code: S52.123A - Displaced fracture of head of unspecified radius, initial encounter for closed fracture Status: Acute Assessment and Plan 26-year-old male with no significant past medical history presents after ingesting baggies of crack cocaine. Cocaine Ingestion: intentional ingestion in an attempt to escape police arrest. Last night 01/21 patient swallowed 4 individually wrapped baggies of crack cocaine rocks/crystals, placed inside another plastic sandwich bag. Poison control contacted from the ED. Patient is at EXTREMELY HIGH RISK FOR CARDIAC ARRHYTHMIA, SUDDEN CARDIAC ARREST, AND . UDS positive for cocaine and cannabinoids. -CT abdomen images reviewed, no acute findings. -ER already started patient on Golytely bowel prep to hopefully expel the contents. -Examine all stools -Monitor on telemetry -Supportive treatment with IVF, antiemetics prn -Clear liquid diet -Monitor patient closely for any signs of intoxication/overdose 01/23 discussed the case with radiology and radiologist housing relocation cannot see any foreign object on initial CT scan, he recommended a noncontrast CT abdomen with oral contrast. I will order a noncontrast CT of the abdomen with oral contrast given that the initially obtained CT of the abdomen and pelvis does not show any artificial object. 01/[address] negative. Will consult GI for possible EGD/ colonoscopy. 01/25 Surgery Consulted - no surgical intervention at this time. CT with IV contrast without oral contrast shows abnormality in stomach. Discussed case with Dr Garcia from Gi who will perform upper endoscopy in patient in am. 01/26 for EGD today. Right Wrist Fracture: Wrist xray images reviewed, shows posterior avulsion fracture involing the triquetrum with moderate adjacent soft tissue edema. Nonsurgical. -Splint placed in the ER. -Recommend outpatient follow up with orthopedics after discharge. -Avoid any narcotics with ingestion as above. 01/23 Patient c/o pain in wrist. 4 mg of IV morphine were given earlier. I will place the patient on Toradol. Hypertension: BP elevated at 178/92, no history of hypertension. Likely elevated secondary to pain. 102 BP still very elevated. Amlodipine ordered this am without significant improvement. will start on Clonidine 01 mg po Q 8 hrs. Avoid Beta blockers. 01/26 BP seems to be more stable. continue current management. Epigastric pain Continue mylanta and PPI. DVT Prophylaxis: teds/SCDs Discharge Planning For EGD in am. Problem Qualifiers (1) Purposeful non-suicidal drug ingestion: Qualified Codes: T50.902A - Poisoning by unspecified drugs, medicaments and biological substances, intentional self-harm, initial encounter (2) Foreign body ingestion: Qualified Codes: T18.9XXA - Foreign body of alimentary tract, part unspecified , initial encounter (3) Radial head fracture, closed: Qualified Codes: S52.124A - Nondisplaced fracture of head of right radius, initial encounter for closed fracture Thomas Horn MD Jan 26, 2017 13:01
[2017-01-26] MEDS ORDERED: DO NOT ADM ANY ANTICOAGULANT DRUGS PRN (13:47)
--- NOTE | 2017-01-26 13:47 | GIPROC ---
[facility] [address] [facility]. [facility], [address] EGD PROCEDURE REPORT EXAM DATE: 01/26/2017 PATIENT NAME: Andre Lima MR #: [id number] BIRTHDATE: 1990 ATTENDING: Malathi Garcia MD ORDER #: [id number] THORACIC MEDICINE SPECIALIST: Carina Vasquez RN STATUS: inpatient INDICATIONS: The patient is a 26 yr old male here for an EGD due to gi bleeding retained bag with cocaine not able to pass PROCEDURE PERFORMED: egd with foreign body removal, egd with clip applications MEDICATIONS: Per Anesthesia and None. TOPICAL ANESTHETIC: none CONSENT: The patient understands the risks and benefits of the procedure and understands that these risks include, but are not limited to: sedation, allergic reaction, infection, perforation and/or bleeding. Alternative means of evaluation and treatment include, among others: physical exam, x-rays, and/or surgical intervention. The patient elects to proceed with this endoscopic procedure. medical equipment was checked for proper function. Hand hygiene and appropriate measures for infection prevention was taken. After the risks, benefits and alternatives of the procedure were thoroughly explained, Informed consent was verified, confirmed and timeout was successfully executed by the treatment team. The patient was anesthetized with topical anesthesia and the endoscope was introduced through the mouth and advanced to the second portion of the duodenum. Retroflexed views revealed a hiatal hernia The gastroscope was then slowly withdrawn and removed. Old blood in stomach pyloric channel ulcer-1 cm ulcer , clean base ulcer -1 cm -clot -3 clips applied, the fourth one did not deploy foreign body-large plastic bag -most likely the drug bag-removed using a snare , other instruments used-basket and net, bag was removed with the snare bag-sandwich bag wrapped with an elastic band, small whole on the site-bag was opened once out of stomach-7 small bags noted, two of them contained small rocks -given to or supervisor looping agressive washing of stomach done. Surgery on standby. ADVERSE EVENTS: There were no complications. IMPRESSIONS: 1. Old blood in stomach pyloric channel ulcer-1 cm ulcer , clean base ulcer -1 cm -clot -3 clips applied, the fourth one did not deploy foreign body-large plastic bag -most likely the drug bag-removed using a snare , other instruments used-basket and net, bag was removed with the snare bag-sandwich bag wrapped with an elastic band, small whole on the site-bag was opened once out of stomach-7 small bags noted, two of them contained small rocks -given to or supervisor looping agressive washing of stomach done 2. Retroflexed views revealed a hiatal hernia RECOMMENDATIONS: Clear liquid diet zofran prn for n.v protonix 40 mg po bid carafate liquid 1 gm po qid close monitoring egd in 4 weeks avoid nsaids /etoh PATIENT CONDITION: stable DISPOSITION: Inpatient REPEAT EXAM: egd in 4 weeks Malathi Garcia MD eSigned: Malathi Garcia MD 01/26/2017 1:47 PM cc: PATIENT NAME: Andre Lima MR#: [id number]
[2017-01-26] MEDS: SUCRALFATE 1 GM/10 ML CUP PO SCH ×2 (17:19→20:41)
[2017-01-26] MEDS: PANTOPRAZOLE SODIUM 40 MG VIAL IV PUSH SCH (17:20)
[2017-01-27] VITALS (8 sets, daily range): BP systolic 138–169; BP diastolic 76–95; PULSE 75–89; RESP 18–20; TEMP 96.5–99; O2SAT 97–100
[2017-01-27] MEDS: SODIUM CHLOR 0.45% 1000 ML INJ 1,000 ML IV SCH ×3 (00:18→16:18)
[2017-01-27] MEDS: cloNIDine HCL 0.1 MG TAB PO SCH ×3 (04:54→21:46)
[2017-01-27] MEDS: PANTOPRAZOLE SODIUM 40 MG VIAL IV PUSH SCH (04:54)
[2017-01-27] MEDS: DOCUSATE SODIUM 50 MG/SENNA 8.6 MG TAB PO SCH ×2 (09:00→21:00)
[2017-01-27] MEDS: SODIUM CHLORIDE 0.9% FLUSH 10 ML FLUSH IV FLUSH SCH ×2 (09:00→21:46)
[2017-01-27] MEDS: SUCRALFATE 1 GM/10 ML CUP PO SCH ×4 (09:09→21:46)
[2017-01-27 09:42] LABS: BICARBONATE 27.2 MEQ/L (21.0-32.0); POTASSIUM 3.5 MEQ/L (3.5-5.1)
--- NOTE | 2017-01-27 11:52 | HHI.GIFU ---
Subjective Remarks Resting in bed. States he is feeling fine and wants to go home. Denies n/v, abdominal pain. (Pauly Don) Objective Vitals I&O Vital Signs Date Time Temp Pulse Resp B/P (MAP) Pulse Ox O2 Delivery O2 Flow Rate FiO2 01/27/17 08:00 98.1 83 20 169/95 (119) 100 01/27/17 04:00 96.5 89 20 161/86 (111) 99 01/27/17 00:00 98.4 81 18 141/76 (97) 100 01/26/17 23:00 89 01/26/17 19:30 97.5 97 18 179/133 (148) 97 01/26/17 18:08 98 21 01/26/17 16:05 98.8 77 18 138/78 (98) 98 01/26/17 14:10 92 14 148/71 (96) 98 Room Air 01/26/17 14:00 101 14 154/77 (102) 98 Room Air 01/26/17 13:51 97.7 121 14 158/89 (112) 97 Room Air I/O 01/26/17 01/26/17 01/26/17 01/27/17 01/27/17 01/27/17 06:59 14:59 22:59 06:59 14:59 22:59 Intake Total 450 ml 500 ml Balance 450 ml 500 ml Intake Oral 450 ml Other 500 ml # Voids 2 3 4 # Bowel Movements 0 2 1 Laboratory Laboratory Tests Test 01/27/17 08:44 Blood Urea Nitrogen 10 Creatinine 1.29 Random Glucose 92 Calcium Level 9.0 Sodium Level 138 Potassium Level 3.5 Chloride Level 102 Carbon Dioxide Level 27.2 Anion Gap 9 Estimat Glomerular Filtration Rate 81 Imaging Last Impressions Abdomen/Pelvis CT 01/25/17 0000 Signed Impressions: Service Date/Time: Wednesday, January 25, 2017 10:24 - CONCLUSION: 1. Small amount of distal gastric content. However, the stomach is decompressed and its uncertain what the stomach contents represent. 2. Otherwise, no definitive prominent intraluminal material in the bowel is demonstrated. No evidence for obstruction. Lang Fernandez MD Chest X-Ray 01/22/17 1112 Signed Impressions: Service Date/Time: Sunday, January 22, 2017 11:28 - CONCLUSION: Normal examination. Geno Wade MD Wrist X-Ray 01/22/17 0000 Signed Impressions: Service Date/Time: Sunday, January 22, 2017 11:47 - CONCLUSION: Posterior avulsion fracture involving the triquetrum with moderate adjacent soft tissue edema. Geno Wade MD Elbow X-Ray 01/22/17 0000 Signed Impressions: Service Date/Time: Sunday, January 22, 2017 13:25 - CONCLUSION: Nondisplaced radial head fracture. Geno Wade MD Abdomen X-Ray 01/22/17 0000 Signed Impressions: Service Date/Time: Sunday, January 22, 2017 11:31 - CONCLUSION: No acute disease. Geno Wade MD Physical Exam HEENT: Normocephalic; atraumatic; no jaundice. CHEST: CTA CARDIAC: RRR ABDOMEN: Soft, nondistended, nontender; no hepatosplenomegaly; bowel sounds are present in all four quadrants. EXTREMITIES: No clubbing, cyanosis, or edema. SKIN: Normal; no rash; no jaundice. CABLE WORKER HELPER: No focal deficits; alert and oriented times three. (Pauly Don) Assessment and Plan Plan ASSESSMENT: - Intentional ingestion of crack cocaine. CT Scan abdomen and pelvis without IV contrast (01/23/17)---> negative CT abdomen and pelvis. Pt swallowed 4 bags of crack cocaine (each 0.5 to 0.7 grams), double wrapped in a sandwich bag to avoid arrest early Tuesday am. He tried to induce vomiting and took laxatives to try to pass the baggies, but has not been successful. He had Golytely x2, but did not pass the bags. CT abdomen and pelvis without contrast (01/25/17)---> small amount of distal gastric content. However, the stomach is decompressed and its uncertain what the stomach contents represent. Otherwise no definitive prominent intraluminal material in the bowel is demonstrated. No evidence for obstruction. S/P EGD (01/26/17)----> 1. Old blood in stomach pyloric channel ulcer-1 cm ulcer , clean base ulcer -1 cm -clot -3 clips applied, the fourth one did not deploy foreign body-large plastic bag -most likely the drug bag-removed using a snare, other instruments used-basket and net, bag was removed with the snare bag-sandwich bag wrapped with an elastic band, small whole on the site-bag was opened once out of stomach- 7 small bags noted, two of them contained small rocks- given to or dewatering filtering supervisor aggressive washing of stomach done. 2. Retroflexed views revealed a hiatal hernia. - Pyloric channel ulcer, s/p clips. States he is doing well, no n/v/bleeding. Wants to eat and go home. D/W patient avoiding NSAIDs- Aleve, Motrin, Ibuprofen, ETOH. Verbalizes understanding. PPI/Carafate. Advance diet. HH stable. - Right radial head fx. S/P Splint. PLAN: - Advance diet - Protonix 40mg po BID - Carafate 1 gram TID-AC - Avoid NSAIDs, d/w patient - Avoid ETOH, d/w patient - Rpt. EGD in 4 weeks - FU NEHA 2 weeks - Pt seen and examined by Dr. Garcia and myself and this note is written on her behalf (Pauly Don) Pauly Don Jan 27, 2017 11:52 Malathi Garcia MD Jan 27, 2017 18:35
[2017-01-27 14:11] LABS: CKMB 1.6 NG/ML (0.5-3.6)
[2017-01-27] MEDS: PANTOPRAZOLE SOD 40 MG DELAYED RELEASE TAB PO SCH (21:46)
[2017-01-28] MEDS: SODIUM CHLOR 0.45% 1000 ML INJ 1,000 ML IV SCH ×2 (00:18→08:18)
--- NOTE | 2017-01-28 00:40 | HHI.PR ---
Subjective Remarks late entry - patient seen on 01/27/17 at 12:10 pm Patient denies cp/sob denies nausea, vomiting or abdominal pain tolerated regular diet Bp elevated Objective Vitals Vital Signs Date Time Temp Pulse Resp B/P (MAP) Pulse Ox O2 Delivery O2 Flow Rate FiO2 01/27/17 20:00 98.7 84 18 138/84 (102) 97 01/27/17 18:03 98 01/27/17 16:00 98.6 75 20 142/93 (109) 98 01/27/17 12:07 99.0 82 20 168/92 (117) 98 01/27/17 08:00 98.1 83 20 169/95 (119) 100 01/27/17 04:00 96.5 89 20 161/86 (111) 99 I/O 01/27/17 01/27/17 01/27/17 01/28/17 01/28/17 01/28/17 07:00 15:00 23:00 07:00 15:00 23:00 Intake Total 600 ml Balance 600 ml Intake Oral 600 ml # Voids 4 3 # Bowel Movements 1 1 Result Diagram: 01/25/17 0731 01/27/17 0844 Imaging Last Impressions Abdomen/Pelvis CT 01/25/17 0000 Signed Impressions: Service Date/Time: Wednesday, January 25, 2017 10:24 - CONCLUSION: 1. Small amount of distal gastric content. However, the stomach is decompressed and its uncertain what the stomach contents represent. 2. Otherwise, no definitive prominent intraluminal material in the bowel is demonstrated. No evidence for obstruction. Lang Fernandez MD Chest X-Ray 01/22/17 1112 Signed Impressions: Service Date/Time: Sunday, January 22, 2017 11:28 - CONCLUSION: Normal examination. Geno Wade MD Wrist X-Ray 01/22/17 0000 Signed Impressions: Service Date/Time: Sunday, January 22, 2017 11:47 - CONCLUSION: Posterior avulsion fracture involving the triquetrum with moderate adjacent soft tissue edema. Geno Wade MD Elbow X-Ray 01/22/17 0000 Signed Impressions: Service Date/Time: Sunday, January 22, 2017 13:25 - CONCLUSION: Nondisplaced radial head fracture. Geno Wade MD Abdomen X-Ray 01/22/17 0000 Signed Impressions: Service Date/Time: Sunday, January 22, 2017 11:31 - CONCLUSION: No acute disease. Geno Wade MD Objective Remarks GENERAL: Well-nourished, well-developed young AA male patient in NAD. SKIN: Warm and dry. No rash. HEAD: Normocephalic. Atraumatic. EYES: Pupils equal and round. No scleral icterus. No injection or drainage. ENT: No nasal bleeding or discharge. Mucous membranes pink and moist. NECK: Supple. Trachea midline. CARDIOVASCULAR: Regular rate and rhythm. S1, S2 noted. No murmur appreciated. RESPIRATORY: No accessory muscle use. Clear to auscultation. Breath sounds equal bilaterally. GASTROINTESTINAL: Abdomen soft, non-tender, nondistended. Normoactive bowel sounds x4. MUSCULOSKELETAL: No obvious deformities. Extremities without clubbing, cyanosis , or edema. NEUROLOGICAL: Awake and alert. No obvious cranial nerve deficits. Motor grossly within normal limits. Normal speech. PSYCHIATRIC: Appropriate mood and affect; insight and judgment normal. Procedures none Medications and IVs Current Medications Medications (Trade) Dose Ordered Sig/Can Route Start Time Stop Time Status Last Admin Sodium Chloride 1,000 ml @ 125 mls/hr Q8H IV 01/22/17 16:14 01/25/17 16:18 (NS Flush) 2 ml UNSCH PRN IV FLUSH 01/22/17 16:15 (NS Flush) 2 ml BID IV FLUSH 01/22/17 21:00 01/27/17 21:46 (Tylenol) 650 mg Q4H PRN PO 01/22/17 16:15 (Zofran Inj) 4 mg Q6H PRN IVP 01/22/17 16:15 01/22/17 17:37 (Narcan Inj) 0.4 mg UNSCH PRN IV PUSH 01/22/17 16:15 (Anay-Colace) 1 tab BID PO 01/22/17 21:00 01/25/17 08:50 (Milk Of Magnesia Liq) 30 ml Q12H PRN PO 01/22/17 16:15 (Senokot) 17.2 mg Q12H PRN PO 01/22/17 16:15 (Dulcolax Supp) 10 mg DAILY PRN RECTAL 01/22/17 16:15 (Lactulose Liq) 30 ml DAILY PRN PO 01/22/17 16:15 (Catapres) 0.1 mg Q6H PRN PO 01/23/17 18:30 01/24/17 04:46 (Norvasc) 10 mg DAILY PO 01/24/17 09:00 01/27/17 09:09 (Mag-Al Plus Susp Liq) 30 ml Q6H PRN PO 01/24/17 13:30 01/27/17 17:32 (Carafate Liq) 1 gm ACHS PO 01/26/17 17:00 01/27/17 21:46 (Protonix) 40 mg Q12HR PO 01/27/17 21:00 01/27/17 21:46 (Catapres) 0.2 mg Q8HR PO 01/27/17 14:00 01/27/17 21:46 A/P Problem List: (1) Purposeful non-suicidal drug ingestion ICD Code: T50.902A - Poisoning by unspecified drugs, medicaments and biological substances, intentional self-harm, initialencounter Status: Acute (2) Foreign body ingestion ICD Code: T18.9XXA - Foreign body of alimentary tract, part unspecified, initial encounter Status: Acute (3) Radial head fracture, closed ICD Code: S52.123A - Displaced fracture of head of unspecified radius, initial encounter for closed fracture Status: Acute Assessment and Plan 26-year-old male with no significant past medical history presents after ingesting baggies of crack cocaine. Cocaine Ingestion: intentional ingestion in an attempt to escape police arrest. Last night 01/21 patient swallowed 4 individually wrapped baggies of crack cocaine rocks/crystals, placed inside another plastic sandwich bag. Poison control contacted from the ED. Patient is at EXTREMELY HIGH RISK FOR CARDIAC ARRHYTHMIA, SUDDEN CARDIAC ARREST, AND . UDS positive for cocaine and cannabinoids. -CT abdomen images reviewed, no acute findings. -ER already started patient on Golytely bowel prep to hopefully expel the contents. -Examine all stools -Monitor on telemetry -Supportive treatment with IVF, antiemetics prn -Clear liquid diet -Monitor patient closely for any signs of intoxication/overdose 01/23 discussed the case with radiology and radiologist extraction machine operator cannot see any foreign object on initial CT scan, he recommended a noncontrast CT abdomen with oral contrast. I will order a noncontrast CT of the abdomen with oral contrast given that the initially obtained CT of the abdomen and pelvis does not show any artificial object. 01/[address] negative. Will consult GI for possible EGD/ colonoscopy. 01/25 Surgery Consulted - no surgical intervention at this time. CT with IV contrast without oral contrast shows abnormality in stomach. Discussed case with Dr Garcia from Gi who will perform upper endoscopy in patient in am. 01/27 sp EGD with removal of foreign object consisting of a large sandwich bag with other 7 smaller bags from which only 2 contained 2 small rocks. gastric ulcer with recent GI bleed also reported. Discussed with Dr Garcia from GI. Right Wrist Fracture: Wrist xray images reviewed, shows posterior avulsion fracture involing the triquetrum with moderate adjacent soft tissue edema. Nonsurgical. -Splint placed in the ER. -Recommend outpatient follow up with orthopedics after discharge. -Avoid any narcotics with ingestion as above. 01/23 Patient c/o pain in wrist. 4 mg of IV morphine were given earlier. I will place the patient on Toradol. Hypertension: BP elevated at 178/92, no history of hypertension. Likely elevated secondary to pain. 102 BP still very elevated. Amlodipine ordered this am without significant improvement. will start on Clonidine 01 mg po Q 8 hrs. Avoid Beta blockers. 01/26 BP seems to be more stable. continue current management. 01/27 BP still severely elevated into the 160's. Increase clonidine to 0.2 mg po every 8 hours. Continue to monitor BP. Epigastric pain Continue mylanta and PPI. 01/27 Much improved. Continue PPI DVT Prophylaxis: teds/SCDs Discharge Planning Possible DC in am pending stabilization of blood pressure. Problem Qualifiers (1) Purposeful non-suicidal drug ingestion: Qualified Codes: T50.902A - Poisoning by unspecified drugs, medicaments and biological substances, intentional self-harm, initial encounter (2) Foreign body ingestion: Qualified Codes: T18.9XXA - Foreign body of alimentary tract, part unspecified , initial encounter (3) Radial head fracture, closed: Qualified Codes: S52.124A - Nondisplaced fracture of head of right radius, initial encounter for closed fracture Thomas Horn MD Jan 28, 2017 00:40
[2017-01-28 04:00] VITALS: BP 135/80; PULSE 76; RESP 20; TEMP 97; O2SAT 97
[2017-01-28] MEDS: cloNIDine HCL 0.1 MG TAB PO SCH ×2 (06:23→13:13)
[2017-01-28 07:52] VITALS: BP 148/82; PULSE 65; RESP 20; TEMP 98.3; O2SAT 100
[2017-01-28] MEDS: SUCRALFATE 1 GM/10 ML CUP PO SCH ×2 (08:00→13:13)
[2017-01-28] MEDS: DOCUSATE SODIUM 50 MG/SENNA 8.6 MG TAB PO SCH (09:00)
[2017-01-28] MEDS: SODIUM CHLORIDE 0.9% FLUSH 10 ML FLUSH IV FLUSH SCH (09:00)
[2017-01-28] MEDS: PANTOPRAZOLE SOD 40 MG DELAYED RELEASE TAB PO SCH (09:17)
[2017-01-28 10:12] VITALS: PULSE 60
[2017-01-28 12:00] VITALS: BP 151/78; PULSE 87; RESP 20; TEMP 98.2; O2SAT 97
[2017-01-28] MEDS ORDERED: AMLO10 PO (13:44)
[2017-01-28] MEDS ORDERED: CLON.1 PO (13:44)
[2017-01-28] MEDS ORDERED: PANT40TA3 PO (13:44)
--- NOTE | 2017-01-28 13:44 | HHI.DCPOC ---
Discharge Care Plan Diagnosis: (1) Radial head fracture, closed (2) Foreign body ingestion (3) Purposeful non-suicidal drug ingestion (4) Fracture of triquetrum of right wrist Goals to Promote Your Health * To prevent worsening of your condition and complications * To maintain your health at the optimal level Directions to Meet Your Goals Take your medications as prescribed Follow your dietary instruction Follow activity as directed Keep your appointments as scheduled Take your immunizations and boosters as scheduled If your symptoms worsen call your PCP, if no PCP go to Urgent Care Center or Emergency Room Smoking is Dangerous to Your Health. Avoid second hand smoke Call the 24-hour hour crisis hotline for domestic abuse at Thomas Horn MD Jan 28, 2017 13:44
[2017-01-28] MEDS ORDERED: CARA1TAB6 PO (13:53)
--- NOTE | 2017-01-28 13:53 | HHI.DS ---
Discharge Summary Admission Date Jan 22, 2017 at 16:17 Discharge Date: Jan 28, 2017 Admitting Diagnosis ingestion of drug stuffers with cocaine, wrist and elbow fx (1) Purposeful non-suicidal drug ingestion ICD Code: T50.902A - Poisoning by unspecified drugs, medicaments and biological substances, intentional self-harm, initialencounter Status: Acute (2) Foreign body ingestion ICD Code: T18.9XXA - Foreign body of alimentary tract, part unspecified, initial encounter Status: Acute (3) Radial head fracture, closed ICD Code: S52.123A - Displaced fracture of head of unspecified radius, initial encounter for closed fracture Status: Acute Procedures none Brief History - From Admission Written by Dianna Orozco, acting as scribe for Dr. Dhillon on 01/22/17 at 16: 05. 26-year-old male with no significant past medical history presents after ingesting baggies of crack cocaine. The patient reports last night he was around a bunch of police and he was worried him and his friend were going to get arrested, therefore he decided to ingest 4 individually wrapped baggies of crack cocaine that were also placed inside another plastic sandwich bag. The patient ran from the scene, fell on an outstretched hand, and was taken to detention for resisting arrest. He spent the night in detention, released this morning, then presented to the ER today with right wrist pain and vomiting. The patient reports he has been vomiting multiple times today, with a few episodes of streaks of bright red blood in the emesis. He has also been taking laxatives to assist with passing the baggies. He denies any abdominal pain, chest pain, palpitations, or shortness of breath. He denies using drugs himself, only admits to marijuana use. The patient has no other medical complaints at this time. CBC/BMP: 01/25/17 0731 01/27/17 0844 Significant Findings Laboratory Tests Test 01/27/17 08:44 Estimat Glomerular Filtration Rate 81 ML/MIN (>89) Total Creatine Kinase 533 U/L (39-308) PE at Discharge GENERAL: Well-nourished, well-developed young AA male patient in NAD. SKIN: Warm and dry. No rash. HEAD: Normocephalic. Atraumatic. EYES: Pupils equal and round. No scleral icterus. No injection or drainage. ENT: No nasal bleeding or discharge. Mucous membranes pink and moist. NECK: Supple. Trachea midline. CARDIOVASCULAR: Regular rate and rhythm. S1, S2 noted. No murmur appreciated. RESPIRATORY: No accessory muscle use. Clear to auscultation. Breath sounds equal bilaterally. GASTROINTESTINAL: Abdomen soft, non-tender, nondistended. Normoactive bowel sounds x4. MUSCULOSKELETAL: No obvious deformities. Extremities without clubbing, cyanosis , or edema. NEUROLOGICAL: Awake and alert. No obvious cranial nerve deficits. Motor grossly within normal limits. Normal speech. PSYCHIATRIC: Appropriate mood and affect; insight and judgment normal. Thomas Horn MD Jan 28, 2017 13:53
== END 2017-01-28 16:04 | disposition home or self-care (01) | DRG 328 ==
LOC: NEPC 11:07 → NEDH 15:33 → OBSVTOIN 16:17 → N05B 17:00
PROVIDERS: ADMIT Hospitalist; ATTEND Hospitalist
PROC: 0DC68ZZ Extirpation of Matter from Stomach, Via Natural or Artificial Opening Endoscopic (ICD-10-PCS; 2017-01-26)
PROC: 0DQ78ZZ Repair Stomach, Pylorus, Via Natural or Artificial Opening Endoscopic (ICD-10-PCS; principal; 2017-01-26 12:15)
DX: T18.2XXA Foreign body in stomach, initial encounter (principal); K25.7 Chronic gastric ulcer without hemorrhage or perforation; R03.0 Elevated blood-pressure reading, without diagnosis of hypertension; S62.111A Displaced fracture of triquetrum [cuneiform] bone, right wrist, initial encounter for closed fracture; W01.0XXA Fall on same level from slipping, tripping and stumbling without subsequent striking against object, initial encounter; K44.9 Diaphragmatic hernia without obstruction or gangrene; T40.5X1A Poisoning by cocaine, accidental (unintentional), initial encounter; E87.6 Hypokalemia
CPT/HCPCS: 29125; 29240; 71010; 73080; 73100; 74020; 74176; 76937; 80048; 80053; 80307; 81001; 82550; 82552; 83735; 84100; 84484; 85025; 86850; 86900; 86901; 93005; 96361; 96374; 96375; C9113; J1100; J1885; J2250; J2270; J2370; J2405; J3010; J7030; Q9963